=== PATIENT | male | born 1960 | race Caucasian/White ===

== ENCOUNTER 2018-10-04 13:20 | Inpatient (IN) | payer MEDICAID, OTHER ==
[~2018-10-04] VITALS: Ht 177.8 cm; Wt 72.9 kg
[2018-10-04] MEDS ORDERED: metoclopramide 5 mg/ml inj IV ONE (13:55)
[2018-10-04] MEDS ORDERED: diphenhydrAMINE 50 mg/ml inj IV ONE (13:55)
[2018-10-04] MEDS ORDERED: normal saline 1000ML IV soln IVB ONE (13:55)
[2018-10-04 14:12] LABS: BASOPHILS # (AUTO) 0.1 X10'3 (0-0.2); BASOPHILS % (AUTO) 0.7 % (0-1); EOSINOPHILS # (AUTO) 0.1 X10'3 (0-0.9); EOSINOPHILS % (AUTO) 1.1 % (0-6); HEMATOCRIT 47.5 % (42.0-52.0); HEMOGLOBIN 16.1 g/dl (14.0-17.9); LYMPHOCYTES # (AUTO) 2.6 X10'3 (1.1-4.8); LYMPHOCYTES % (AUTO) 21.6 % (21-51); MEAN CORPUSCULAR HEMOGLOBIN 30.5 PG (27.0-31.0); MEAN CORPUSCULAR HGB CONC 33.9 % (33.0-36.5); MEAN PLATELET VOLUME 8.5 FL (7.4-10.4); MONOCYTES # (AUTO) 0.8 X10'3 (0-0.9); MONOCYTES % (AUTO) 7.1 % (2-12); NEUTROPHILS # (AUTO) 8.3 X10'3 (1.8-7.7); NEUTROPHILS % (AUTO) 69.5 % (42-75); PLATELET COUNT 248 X10'3 (140-440); RED BLOOD COUNT 5.27 X10'6 (4.70-6.10); RED CELL DISTRIBUTION WIDTH 12.1 % (11.5-14.5); WHITE BLOOD COUNT 11.9 X10'3 (4.5-11.0)
[2018-10-04] MEDS ORDERED: iohexol 300mg/ml 100ml inj. ONE (14:19)
[2018-10-04 14:28] LABS: ALANINE AMINOTRANSFERASE 70 U/L (12-78); ALBUMIN 3.6 G/DL (3.4-5.0); ALBUMIN/GLOBULIN RATIO 0.8 (1.1-1.5); ALKALINE PHOSPHATASE 61 IU/L (46-116); ANION GAP 11 (8-16); ASPARTATE AMINO TRANSFERASE 29 U/L (10-37); BILIRUBIN,TOTAL 0.4 MG/DL (0.1-1.0); BLOOD UREA NITROGEN 19 MG/DL (7-18); BUN/CREATININE RATIO 17.3 (5.4-32.0); CALCIUM 9.6 MG/DL (8.5-10.1); CHLORIDE 94 MMOL/L (99-107); GLUCOSE 390 MG/DL (70-104); POTASSIUM 4.2 MMOL/L (3.5-5.1); SODIUM 131 MMOL/L (135-145); TOTAL PROTEIN 7.9 G/DL (6.4-8.2); eGFR 69 ML/MIN
[2018-10-04 14:36] LABS: MAGNESIUM 1.9 MG/DL (1.5-2.4)
[2018-10-04] MEDS ORDERED: aspirin 325mg tablet PO ONE (15:00)
[2018-10-04] MEDS ORDERED: acetaminophen 325mg tablet PO PRN ×2 (15:40)
[2018-10-04] MEDS ORDERED: mag hydrox/Alum hydrox/simeth 30ml oral suspension PO PRN (15:40)
[2018-10-04] MEDS ORDERED: HYDROcodone/acetaminophen 5mg/325mg tablet PO PRN (15:40)
[2018-10-04 16:22] LABS: HEMOGLOBIN A1C 10.2 % (4.5-6.2)
[2018-10-04] MEDS ORDERED: insulin regular, human 10 units/0.1 ml syringe IV ONE (17:30)
[2018-10-04] MEDS ORDERED: GLIM1TAB46 PO (17:32)
[2018-10-04] MEDS ORDERED: METF500T PO (17:32)
[2018-10-04] MEDS ORDERED: HYDR-4353 PO (17:33)
[2018-10-04] MEDS ORDERED: BLOOD PRESSURE MED (17:34)
[2018-10-04 18:25] LABS: CLARITY,URINE CLEAR (Clear); COLOR,URINE YELLOW (Yellow); GLUCOSE, URINE >=1000 mg/dl (Neg); KETONES,URINE NEGATIVE (Neg); LEUKOCYTE ESTERASE ,URINE NEGATIVE (Neg); NITRITES, URINE NEGATIVE (Neg); OCCULT BLOOD,URINE NEGATIVE (Neg); PH,URINE 5.5 (4.8-8.0); PROTEIN,URINE NEGATIVE (Neg); UROBILINOGEN,URINE 0.2 E.U/dL (0.2-1.0)
[2018-10-04 18:30] LABS: URINE AMPHETAMINE SCREEN NEGATIVE (Neg); URINE BARBITUATE SCREEN NEGATIVE (Neg); URINE BENZODIAZEPINES SCREEN NEGATIVE (Neg); URINE CANNABINOID SCREEN POSITIVE (Neg); URINE COCAINE SCREEN NEGATIVE (Neg); URINE METHADONE SCREEN NEGATIVE (Neg); URINE OPIATE SCREEN NEGATIVE (Neg); URINE PHENCYCLIDINE SCREEN NEGATIVE (Neg)
[2018-10-04] MEDS ORDERED: glucagon, human recombinant 1mg kit SUBCUT PRN (18:35)
[2018-10-04] MEDS ORDERED: MESSAGE TO PHARMACY PO ONE (18:35)
[2018-10-04] MEDS ORDERED: dextrose ORAL solution 15 GM/59 ML bottle PO PRN ×2 (18:35)
[2018-10-04] MEDS ORDERED: dextrose 50%-water 50ml dispensing syringe IV PRN ×2 (18:35)
[2018-10-04 18:39] LABS: UA COLLECTION TYPE CLN CATCH MIDSTREAM
[2018-10-04 18:40] LABS: BACTERIA,URINE NONE SEEN /HPF (Neg); MUCUS STRANDS NONE SEEN /LPF (Neg); RBC,URINE NONE SEEN /HPF (0-2); SQUAMOUS EPITHELIAL CELL,UR FEW /LPF (FEW); WBC,URINE NONE SEEN /HPF (0-4)
[2018-10-04 19:00] VITALS: BP 163/95
[2018-10-04 20:00] VITALS: BP_SYST 131; BP_SYST 139; BP_SYST 153; BP_DIAS 100; BP_DIAS 87; BP_DIAS 98
[2018-10-04] MEDS: insulin glargine (Lantus) pen - multi-dose SQ SCH (21:00)
[2018-10-04 22:00] VITALS: BP 131/87
[2018-10-05] VITALS (7 sets, daily range): BP systolic 128–164; BP diastolic 83–100
[2018-10-05] MEDS: HYDROcodone/acetaminophen 10/325mg tab PO PRN ×3 (05:28→20:47)
[2018-10-05 05:40] LABS: BASOPHILS % (AUTO) 0.3 % (0-1); EOSINOPHILS # (AUTO) 0.2 X10'3 (0-0.9); EOSINOPHILS % (AUTO) 1.7 % (0-6); HEMATOCRIT 45.3 % (42.0-52.0); HEMOGLOBIN 15.5 g/dl (14.0-17.9); LYMPHOCYTES # (AUTO) 2.7 X10'3 (1.1-4.8); LYMPHOCYTES % (AUTO) 23.3 % (21-51); MEAN CORPUSCULAR HEMOGLOBIN 30.9 PG (27.0-31.0); MEAN CORPUSCULAR HGB CONC 34.2 % (33.0-36.5); MEAN CORPUSCULAR VOLUME 90.3 FL (78-98); MEAN PLATELET VOLUME 8.4 FL (7.4-10.4); MONOCYTES % (AUTO) 8.8 % (2-12); NEUTROPHILS # (AUTO) 7.5 X10'3 (1.8-7.7); NEUTROPHILS % (AUTO) 65.9 % (42-75); PLATELET COUNT 220 X10'3 (140-440); RED BLOOD COUNT 5.02 X10'6 (4.70-6.10); WHITE BLOOD COUNT 11.4 X10'3 (4.5-11.0)
[2018-10-05 06:01] LABS: ANION GAP 7 (8-16); BLOOD UREA NITROGEN 13 MG/DL (7-18); BUN/CREATININE RATIO 13.4 (5.4-32.0); CALCIUM 9.3 MG/DL (8.5-10.1); CHLORIDE 99 MMOL/L (99-107); CHOLESTEROL 146 MG/DL (0-200); CREATININE 0.97 MG/DL (0.60-1.10); GLUCOSE 305 MG/DL (70-104); HDL CHOLESTEROL 29 MG/DL (35-60); LDL CHOLESTEROL 92 MG/DL (50-100); MAGNESIUM 2.2 MG/DL (1.5-2.4); POTASSIUM 4.2 MMOL/L (3.5-5.1); SODIUM 133 MMOL/L (135-145); TOTAL CARBON DIOXIDE 26.6 MMOL/L (24-32); TRIGLYCERIDES 167 MG/DL (20-135); eGFR 80 ML/MIN
[2018-10-05] MEDS ORDERED: atorvastatin 10mg tablet PO SCH (08:00)
[2018-10-05] MEDS: aspirin 81mg tablet.DR PO SCH (08:21)
[2018-10-05] MEDS: insulin Lispro (HumaLOG) vial - multi-dose SQ SCH ×2 (08:29→18:53)
[2018-10-05] MEDS ORDERED: iohexol 350MG/ML 100ml bottle IV ONE (10:11)
[2018-10-05] MEDS: enoxaparin 60mg/0.6ml syringe SUBCUT SCH ×2 (11:20→20:47)
[2018-10-05] MEDS ORDERED: GLYB2.5T4 PO (11:57)
[2018-10-05] MEDS ORDERED: METO1TAB25 PO (11:57)
[2018-10-05] MEDS ORDERED: METO25TA6 PO (11:59)
[2018-10-05] MEDS ORDERED: clonazePAM 0.5mg tablet PO PRN (15:50)
[2018-10-05] MEDS: insulin glargine (Lantus) pen - multi-dose SQ SCH (20:45)
[2018-10-06] VITALS (7 sets, daily range): BP systolic 115–192; BP diastolic 76–120
[2018-10-06] MEDS: HYDROcodone/acetaminophen 10/325mg tab PO PRN (05:07)
[2018-10-06] MEDS: magnesium hydroxide 30ml (MOM) UD suspension PO PRN ×2 (05:08→19:27)
[2018-10-06] MEDS ORDERED: bisacodyl 10mg suppository rectal RC PRN (05:45)
[2018-10-06] MEDS: ondansetron/PF 4mg/2ml inj IV PRN ×2 (07:10→18:49)
[2018-10-06] MEDS: insulin Lispro (HumaLOG) vial - multi-dose SQ SCH ×3 (07:36→18:45)
[2018-10-06 08:26] LABS: BASOPHILS % (AUTO) 0.2 % (0-1); EOSINOPHILS # (AUTO) 0.2 X10'3 (0-0.9); EOSINOPHILS % (AUTO) 1.5 % (0-6); HEMATOCRIT 49.6 % (42.0-52.0); HEMOGLOBIN 16.7 g/dl (14.0-17.9); LYMPHOCYTES # (AUTO) 1.4 X10'3 (1.1-4.8); LYMPHOCYTES % (AUTO) 13.5 % (21-51); MEAN CORPUSCULAR HEMOGLOBIN 30.3 PG (27.0-31.0); MEAN CORPUSCULAR HGB CONC 33.6 % (33.0-36.5); MEAN CORPUSCULAR VOLUME 90.3 FL (78-98); MEAN PLATELET VOLUME 8.5 FL (7.4-10.4); MONOCYTES # (AUTO) 0.7 X10'3 (0-0.9); MONOCYTES % (AUTO) 6.5 % (2-12); NEUTROPHILS # (AUTO) 8.3 X10'3 (1.8-7.7); NEUTROPHILS % (AUTO) 78.3 % (42-75); PLATELET COUNT 244 X10'3 (140-440); RED BLOOD COUNT 5.49 X10'6 (4.70-6.10); RED CELL DISTRIBUTION WIDTH 12.1 % (11.5-14.5); WHITE BLOOD COUNT 10.6 X10'3 (4.5-11.0)
[2018-10-06 08:42] LABS: ALBUMIN 3.4 G/DL (3.4-5.0); ANION GAP 13 (8-16); BLOOD UREA NITROGEN 16 MG/DL (7-18); BUN/CREATININE RATIO 13.2 (5.4-32.0); CHLORIDE 94 MMOL/L (99-107); CREATININE 1.21 MG/DL (0.60-1.10); GLUCOSE 319 MG/DL (70-104); MAGNESIUM 2.1 MG/DL (1.5-2.4); POTASSIUM 4.2 MMOL/L (3.5-5.1); SODIUM 132 MMOL/L (135-145); TOTAL CARBON DIOXIDE 25.2 MMOL/L (24-32); eGFR 62 ML/MIN
[2018-10-06] MEDS: morphine 4 MG/ML inj SYRINge IV PRN ×2 (09:02→14:06)
[2018-10-06] MEDS: aspirin 81mg tablet.DR PO SCH (09:03)
[2018-10-06] MEDS: atorvastatin 20mg tablet PO SCH (09:03)
[2018-10-06 09:08] LABS: TROPONIN I 0.22 NG/ML (0.0-0.05)
[2018-10-06] MEDS: enoxaparin 60mg/0.6ml syringe SUBCUT SCH ×2 (09:27→19:56)
[2018-10-06] MEDS: metoprolol tartrate 25mg tablet PO SCH (19:57)
[2018-10-06] MEDS: insulin glargine (Lantus) pen - multi-dose SQ SCH (21:00)
[2018-10-07] VITALS (7 sets, daily range): BP systolic 129–191; BP diastolic 75–119
[2018-10-07 01:15] LABS: BASOPHILS % (AUTO) 0.2 % (0-1); EOSINOPHILS % (AUTO) 0.2 % (0-6); HEMATOCRIT 49.3 % (42.0-52.0); HEMOGLOBIN 16.5 g/dl (14.0-17.9); LYMPHOCYTES # (AUTO) 1.8 X10'3 (1.1-4.8); LYMPHOCYTES % (AUTO) 12.3 % (21-51); MEAN CORPUSCULAR HEMOGLOBIN 30.2 PG (27.0-31.0); MEAN CORPUSCULAR HGB CONC 33.5 % (33.0-36.5); MEAN CORPUSCULAR VOLUME 90.1 FL (78-98); MEAN PLATELET VOLUME 8.8 FL (7.4-10.4); MONOCYTES % (AUTO) 6.9 % (2-12); NEUTROPHILS # (AUTO) 12.1 X10'3 (1.8-7.7); NEUTROPHILS % (AUTO) 80.4 % (42-75); PLATELET COUNT 279 X10'3 (140-440); RED BLOOD COUNT 5.47 X10'6 (4.70-6.10); RED CELL DISTRIBUTION WIDTH 11.6 % (11.5-14.5); WHITE BLOOD COUNT 14.9 X10'3 (4.5-11.0)
[2018-10-07 01:31] LABS: ALBUMIN 3.3 G/DL (3.4-5.0); ANION GAP 11 (8-16); BLOOD UREA NITROGEN 17 MG/DL (7-18); BUN/CREATININE RATIO 10.4 (5.4-32.0); CHLORIDE 94 MMOL/L (99-107); CREATININE 1.64 MG/DL (0.60-1.10); GLUCOSE 140 MG/DL (70-104); MAGNESIUM 2.4 MG/DL (1.5-2.4); POTASSIUM 3.8 MMOL/L (3.5-5.1); SODIUM 132 MMOL/L (135-145); TOTAL CARBON DIOXIDE 27.5 MMOL/L (24-32); TROPONIN I 0.15 NG/ML (0.0-0.05); eGFR 44 ML/MIN
[2018-10-07] MEDS: ondansetron/PF 4mg/2ml inj IV PRN ×2 (02:08→17:06)
[2018-10-07] MEDS: enoxaparin 60mg/0.6ml syringe SUBCUT SCH ×2 (08:00→20:00)
[2018-10-07] MEDS ORDERED: non-formulary drug (Glyburide 1 TAB) PO SCH (08:00)
[2018-10-07] MEDS: aspirin 81mg tablet.DR PO SCH (09:32)
[2018-10-07] MEDS: atorvastatin 20mg tablet PO SCH (09:32)
[2018-10-07] MEDS: metoprolol tartrate 25mg tablet PO SCH ×2 (09:32→19:51)
[2018-10-07] MEDS: normal saline 1000ml 1,000 ML IV SCH ×2 (09:33→19:50)
[2018-10-07] MEDS ORDERED: metoprolol tartrate 25mg tablet PO ONE (10:00)
[2018-10-07] MEDS ORDERED: iohexol 300mg/ml 100ml inj. ONE (10:34)
[2018-10-07] MEDS ORDERED: LIDOcaine 1% (10mg/ml)w/preservative injection 20ml MDV ONE (11:19)
[2018-10-07] MEDS ORDERED: iohexol 350MG/ML 100ml bottle IV ONE (11:20)
[2018-10-07] MEDS ORDERED: fentaNYL/PF 50MCG/1 ML 2ML syringe ONE (11:42)
[2018-10-07] MEDS ORDERED: midazolam 2 mg/2 ml injection ONE (11:42)
[2018-10-07] MEDS: HYDROcodone/acetaminophen 10/325mg tab PO PRN ×2 (13:50→21:57)
[2018-10-07] MEDS: insulin Lispro (HumaLOG) vial - multi-dose SQ SCH ×2 (14:00→21:08)
[2018-10-07] MEDS: morphine 4 MG/ML inj SYRINge IV PRN (19:58)
[2018-10-07] MEDS: insulin glargine (Lantus) pen - multi-dose SQ SCH (21:05)
[2018-10-08] MEDS: HYDROcodone/acetaminophen 10/325mg tab PO PRN ×2 (04:26→21:23)
[2018-10-08] MEDS: normal saline 1000ml 1,000 ML IV SCH ×2 (05:31→15:04)
[2018-10-08 06:00] VITALS: BP 159/101
[2018-10-08 06:51] LABS: BASOPHILS % (AUTO) 0.2 % (0-1); EOSINOPHILS # (AUTO) 0.1 X10'3 (0-0.9); EOSINOPHILS % (AUTO) 0.6 % (0-6); HEMATOCRIT 44.1 % (42.0-52.0); HEMOGLOBIN 14.9 g/dl (14.0-17.9); LYMPHOCYTES # (AUTO) 1.6 X10'3 (1.1-4.8); LYMPHOCYTES % (AUTO) 9.7 % (21-51); MEAN CORPUSCULAR HEMOGLOBIN 30.5 PG (27.0-31.0); MEAN CORPUSCULAR HGB CONC 33.7 % (33.0-36.5); MEAN CORPUSCULAR VOLUME 90.4 FL (78-98); MEAN PLATELET VOLUME 8.2 FL (7.4-10.4); MONOCYTES # (AUTO) 1.2 X10'3 (0-0.9); MONOCYTES % (AUTO) 7.2 % (2-12); NEUTROPHILS # (AUTO) 13.4 X10'3 (1.8-7.7); NEUTROPHILS % (AUTO) 82.3 % (42-75); PLATELET COUNT 231 X10'3 (140-440); RED BLOOD COUNT 4.88 X10'6 (4.70-6.10); RED CELL DISTRIBUTION WIDTH 12.5 % (11.5-14.5); WHITE BLOOD COUNT 16.2 X10'3 (4.5-11.0)
[2018-10-08 06:59] LABS: ALBUMIN 2.7 G/DL (3.4-5.0); ANION GAP 8 (8-16); BLOOD UREA NITROGEN 16 MG/DL (7-18); BUN/CREATININE RATIO 9.4 (5.4-32.0); CALCIUM 8.1 MG/DL (8.5-10.1); CHLORIDE 97 MMOL/L (99-107); CREATININE 1.71 MG/DL (0.60-1.10); GLUCOSE 193 MG/DL (70-104); MAGNESIUM 2.2 MG/DL (1.5-2.4); POTASSIUM 4.3 MMOL/L (3.5-5.1); SODIUM 132 MMOL/L (135-145); TOTAL CARBON DIOXIDE 27.3 MMOL/L (24-32); eGFR 42 ML/MIN
[2018-10-08 08:00] VITALS: BP_SYST 136; BP_SYST 147; BP_SYST 166; BP_SYST 172; BP_SYST 183; BP_DIAS 103; BP_DIAS 106; BP_DIAS 74; BP_DIAS 76; BP_DIAS 81; BP_DIAS 96
[2018-10-08] MEDS ORDERED: LORazepam 1 MG tablet PO PRN (08:00)
[2018-10-08] MEDS: aspirin 81mg tablet.DR PO SCH (09:13)
[2018-10-08] MEDS: atorvastatin 20mg tablet PO SCH (09:13)
[2018-10-08] MEDS: metoprolol tartrate 25mg tablet PO SCH ×2 (09:15→19:35)
[2018-10-08] MEDS: enoxaparin 60mg/0.6ml syringe SUBCUT SCH ×2 (09:16→19:34)
[2018-10-08] MEDS: morphine 4 MG/ML inj SYRINge IV PRN ×3 (09:23→19:35)
[2018-10-08] MEDS: insulin Lispro (HumaLOG) vial - multi-dose SQ SCH ×3 (09:49→18:50)
[2018-10-08 10:00] VITALS: BP 147/96
[2018-10-08 18:00] VITALS: BP 162/91
[2018-10-08] MEDS: ondansetron/PF 4mg/2ml inj IV PRN (18:41)
[2018-10-08 20:59] VITALS: BP_SYST 144; BP_SYST 153; BP_SYST 158; BP_DIAS 83; BP_DIAS 92; BP_DIAS 93
[2018-10-08] MEDS: insulin glargine (Lantus) pen - multi-dose SQ SCH (21:20)
[2018-10-08 22:00] VITALS: BP 153/92
[2018-10-09] MEDS: normal saline 1000ml 1,000 ML IV SCH ×3 (01:59→21:00)
[2018-10-09] MEDS: HYDROcodone/acetaminophen 10/325mg tab PO PRN ×3 (02:03→16:17)
[2018-10-09] MEDS: morphine 4 MG/ML inj SYRINge IV PRN ×3 (05:31→22:09)
[2018-10-09 06:00] VITALS: BP 148/99
[2018-10-09 06:04] LABS: BASOPHILS % (AUTO) 0.3 % (0-1); EOSINOPHILS # (AUTO) 0.2 X10'3 (0-0.9); EOSINOPHILS % (AUTO) 1.2 % (0-6); HEMATOCRIT 39.4 % (42.0-52.0); HEMOGLOBIN 13.4 g/dl (14.0-17.9); LYMPHOCYTES # (AUTO) 2.3 X10'3 (1.1-4.8); LYMPHOCYTES % (AUTO) 15.4 % (21-51); MEAN CORPUSCULAR HEMOGLOBIN 30.8 PG (27.0-31.0); MEAN CORPUSCULAR VOLUME 90.7 FL (78-98); MEAN PLATELET VOLUME 8.3 FL (7.4-10.4); MONOCYTES # (AUTO) 1.4 X10'3 (0-0.9); MONOCYTES % (AUTO) 9.7 % (2-12); NEUTROPHILS # (AUTO) 10.7 X10'3 (1.8-7.7); NEUTROPHILS % (AUTO) 73.4 % (42-75); PLATELET COUNT 246 X10'3 (140-440); RED BLOOD COUNT 4.35 X10'6 (4.70-6.10); RED CELL DISTRIBUTION WIDTH 12.2 % (11.5-14.5); WHITE BLOOD COUNT 14.6 X10'3 (4.5-11.0)
[2018-10-09 06:09] LABS: ALBUMIN 2.4 G/DL (3.4-5.0); ANION GAP 6 (8-16); BLOOD UREA NITROGEN 15 MG/DL (7-18); BUN/CREATININE RATIO 8.8 (5.4-32.0); CALCIUM 7.8 MG/DL (8.5-10.1); CHLORIDE 101 MMOL/L (99-107); GLUCOSE 157 MG/DL (70-104); MAGNESIUM 2.1 MG/DL (1.5-2.4); POTASSIUM 3.9 MMOL/L (3.5-5.1); SODIUM 135 MMOL/L (135-145); TOTAL CARBON DIOXIDE 27.8 MMOL/L (24-32); eGFR 42 ML/MIN
[2018-10-09] MEDS: aspirin 81mg tablet.DR PO SCH (07:35)
[2018-10-09] MEDS: atorvastatin 20mg tablet PO SCH (07:35)
[2018-10-09] MEDS: metoprolol tartrate 25mg tablet PO SCH ×2 (07:36→20:11)
[2018-10-09] MEDS: enoxaparin 60mg/0.6ml syringe SUBCUT SCH (07:37)
[2018-10-09] MEDS: insulin Lispro (HumaLOG) vial - multi-dose SQ SCH ×2 (08:45→13:17)
[2018-10-09] MEDS ORDERED: dextrose 50%-water 50ml dispensing syringe IV PRN (10:00)
[2018-10-09] MEDS ORDERED: MESSAGE TO NURSING PO ONE ×5 (10:00)
[2018-10-09 11:00] VITALS: BP 157/96
[2018-10-09 12:36] LABS: ABG BASE EXCESS 0.9 mmol/L (-2.0-3.0); ABG HCO3 25.4 mmol/L (22.0-26.0); ABG OXYGEN SATURATION 95.5 % (95-98); ALLEN'S TEST Positive; FCOHb 0.2 % (0.5-1.5); FO2Hb 95.3 % (94-100); TOTAL HEMOGLOBIN 14.8 G/dl (14.0-18.0)
[2018-10-09 15:00] VITALS: BP 186/116
[2018-10-09 19:00] VITALS: BP 171/94
[2018-10-09] MEDS ORDERED: mupirocin 2% nasal ointment 1gm UD NS SCH (20:00)
[2018-10-09] MEDS ORDERED: metoprolol tartrate 25mg tablet PO SCH (20:00)
[2018-10-09] MEDS: insulin glargine (Lantus) pen - multi-dose SQ SCH (20:47)
[2018-10-09 23:00] VITALS: BP 171/97
[2018-10-10] VITALS (18 sets, daily range): BP systolic 108–183; BP diastolic 50–99
[2018-10-10] MEDS: morphine 4 MG/ML inj SYRINge IV PRN ×10 (02:11→23:06)
[2018-10-10] MEDS ORDERED: cefazolin/dext.iso 2gm/100ml 100 ML IV ONE (05:30)
[2018-10-10] MEDS ORDERED: vancomycin/NS 1 GM ADD-VANTAGE 250 ML IV ONE (05:30)
[2018-10-10] MEDS: ringers solution, lacted 1,000 ML IV SCH (05:44)
[2018-10-10] MEDS ORDERED: LORazepam 2 mg/ml vial IV ONE (06:00)
[2018-10-10] MEDS ORDERED: famotidine 20mg tablet PO ONE (06:00)
[2018-10-10] MEDS ORDERED: heparin 10,000 units/1 ML INJ IR ONE (06:05)
[2018-10-10] MEDS ORDERED: papaverine 30 mg/ml 2ml inj. IA ONE (06:06)
[2018-10-10 06:38] LABS: BASOPHILS # (AUTO) 0.1 X10'3 (0-0.2); BASOPHILS % (AUTO) 0.4 % (0-1); EOSINOPHILS # (AUTO) 0.1 X10'3 (0-0.9); EOSINOPHILS % (AUTO) 0.8 % (0-6); HEMATOCRIT 35.6 % (42.0-52.0); HEMOGLOBIN 12.1 g/dl (14.0-17.9); LYMPHOCYTES # (AUTO) 2.2 X10'3 (1.1-4.8); LYMPHOCYTES % (AUTO) 17.1 % (21-51); MEAN CORPUSCULAR HEMOGLOBIN 30.7 PG (27.0-31.0); MEAN CORPUSCULAR VOLUME 90.4 FL (78-98); MEAN PLATELET VOLUME 8.3 FL (7.4-10.4); MONOCYTES # (AUTO) 1.2 X10'3 (0-0.9); NEUTROPHILS # (AUTO) 9.5 X10'3 (1.8-7.7); NEUTROPHILS % (AUTO) 72.7 % (42-75); PLATELET COUNT 278 X10'3 (140-440); RED BLOOD COUNT 3.93 X10'6 (4.70-6.10); RED CELL DISTRIBUTION WIDTH 12.2 % (11.5-14.5); WHITE BLOOD COUNT 13.1 X10'3 (4.5-11.0)
[2018-10-10] MEDS ORDERED: calcium chloride 100 MG/1 ML inj IV ONE (06:40)
[2018-10-10] MEDS ORDERED: magnesium sulf 1 GM/2 ML ONE (06:40)
[2018-10-10] MEDS ORDERED: methylPREDNISolone sod succ 1000mg vial ONE (06:40)
[2018-10-10] MEDS ORDERED: INSULIN R 100 UNIT in NS 100ML (1 UNIT/1 ML) BAG IV ONE (06:40)
[2018-10-10] MEDS ORDERED: sevoflurane 250ml liquid IH ONE (06:40)
[2018-10-10] MEDS ORDERED: aminocaproic acid 250 MG/1 ML inj. ONE (06:40)
[2018-10-10] MEDS ORDERED: protamine sulf. 10mg/ml inj. IV ONE (06:40)
[2018-10-10] MEDS ORDERED: nitroGLYCERIN in D5W 50mg/250ml (Tridil) infusion IV ONE (06:40)
[2018-10-10] MEDS ORDERED: LIDOcaine 2% (20mg/ml) 5ml vial ONE (06:40)
[2018-10-10] MEDS ORDERED: albumin (human) 25% 100 ML IV solution IV ONE (06:40)
[2018-10-10] MEDS ORDERED: LIDOcaine 2% (20 mg/ml) 5ml cardiac syringe ONE (06:40)
[2018-10-10] MEDS ORDERED: niCARDipine in NS 40mg/200ml (0.2mg/ml) IVPB IV ONE (06:40)
[2018-10-10] MEDS ORDERED: sodium bicarbonate (8.4%) 1 mEq/ml syringe ONE (06:40)
[2018-10-10] MEDS ORDERED: potassium Cl 2 mEq/ml inj IV ONE (06:40)
[2018-10-10] MEDS ORDERED: heparin 10,000 units/1 ML INJ ONE (06:40)
[2018-10-10] MEDS ORDERED: phenylephrine 10mg/ml inj. ONE (06:40)
[2018-10-10] MEDS ORDERED: heparin 1,000 units/ml 10ml inj ONE (06:40)
[2018-10-10] MEDS: insulin Lispro (HumaLOG) vial - multi-dose SQ SCH ×4 (06:42→18:00)
[2018-10-10 06:49] LABS: ALBUMIN 2.3 G/DL (3.4-5.0); ANION GAP 8 (8-16); CHLORIDE 100 MMOL/L (99-107); CREATININE 1.88 MG/DL (0.60-1.10); GLUCOSE 174 MG/DL (70-104); POTASSIUM 3.7 MMOL/L (3.5-5.1); SODIUM 135 MMOL/L (135-145); TOTAL CARBON DIOXIDE 26.6 MMOL/L (24-32); eGFR 37 ML/MIN
[2018-10-10 06:50] LABS: INR 0.9 INR; PARTIAL THROMBOPLASTIN TIME 33 SECONDS (22-32); PROTHROMBIN TIME 9.4 SECONDS (9.0-12.0)
[2018-10-10] MEDS ORDERED: SUFENTANIL CITRATE 50 MCG/ML 2ml ampule IV ONE (06:52)
[2018-10-10] MEDS ORDERED: MIDAZolam 1mg/ml 10ml vial ONE (06:52)
[2018-10-10] MEDS ORDERED: propofol inj 20 ML IV ONE (06:54)
[2018-10-10 07:02] LABS: BLOOD UREA NITROGEN 17 MG/DL (7-18)
[2018-10-10 07:25] LABS: ABG BASE EXCESS 2.5 mmol/L (-2.0-3.0); ABG HCO3 26.2 mmol/L (22.0-26.0); ABG OXYGEN SATURATION 99.1 % (95-98); ABG PCO2 37.4 mmHg (35.0-45.0); ABG PH 7.464 (7.350-7.450); ABG PO2 430.2 mmHg (60.0-100.0); CL (ABG) 105 mmol/L (99-107); FCOHb 0.3 % (0.5-1.5); FMetHb 0.6 % (0.3-1.12); FO2Hb 98.2 % (94-100); GLUCOSE (ABG) 138 mg/dl (70-105); IONIZED CA (ABG) 1.03 mmol/L (1.03-1.32); K (ABG) 3.4 mmol/L (3.3-5.1); NA (ABG) 133 mmol/L (135-145); TOTAL HEMOGLOBIN 12.1 G/dl (14.0-18.0)
[2018-10-10] MEDS ORDERED: pancuronium br 1mg/ml inj IV ONE (08:09)
[2018-10-10 08:40] LABS: ACT @ 1.70 U 357 SEC (193-297); ACT @ 2.84 U 491 SEC (260-420); BASELINE ACT 169 SEC (101-148); PATIENT WEIGHT 75.0k KG
[2018-10-10 09:10] LABS: ABG BASE EXCESS 3.3 mmol/L (-2.0-3.0); ABG HCO3 28.1 mmol/L (22.0-26.0); ABG OXYGEN SATURATION 99.1 % (95-98); ABG PCO2 44.2 mmHg (35.0-45.0); ABG PH 7.421 (7.350-7.450); ABG PO2 363.3 mmHg (60.0-100.0); CL (ABG) 103 mmol/L (99-107); FCOHb 0.3 % (0.5-1.5); FMetHb 0.3 % (0.3-1.12); FO2Hb 98.5 % (94-100); GLUCOSE (ABG) 102 mg/dl (70-105); IONIZED CA (ABG) 0.89 mmol/L (1.03-1.32); K (ABG) 4.2 mmol/L (3.3-5.1); NA (ABG) 131 mmol/L (135-145); TOTAL HEMOGLOBIN 8.1 G/dl (14.0-18.0)
[2018-10-10 09:36] LABS: ABG BASE EXCESS VENOUS 2.7 mmol/L; ABG HCO3 VENOUS 27.2 mmol/L; ABG PCO2 VENOUS 41.3 mmHg; ABG PO2 VENOUS 45.2 mmHg; CL (ABG) 103 mmol/L (99-107); FCOHb VENOUS 0.2 %; FHHb VENOUS 16.2 %; FMetHb VENOUS 0.1 %; FO2Hb VENOUS 83.5 %; GLUCOSE (ABG) 119 mg/dl (70-105); IONIZED CA (ABG) 0.94 mmol/L (1.03-1.32); K (ABG) 4.2 mmol/L (3.3-5.1); NA (ABG) 132 mmol/L (135-145); TOTAL HEMOGLOBIN 8.6 G/dl (14.0-18.0)
[2018-10-10 10:10] LABS: ABG BASE EXCESS 0.4 mmol/L (-2.0-3.0); ABG HCO3 23.4 mmol/L (22.0-26.0); ABG PCO2 31.4 mmHg (35.0-45.0); ABG PH 7.491 (7.350-7.450); ABG PO2 390.4 mmHg (60.0-100.0); CL (ABG) 104 mmol/L (99-107); FCOHb 0.3 % (0.5-1.5); FMetHb 0.5 % (0.3-1.12); FO2Hb 98.2 % (94-100); GLUCOSE (ABG) 146 mg/dl (70-105); IONIZED CA (ABG) 0.95 mmol/L (1.03-1.32); K (ABG) 4.3 mmol/L (3.3-5.1); NA (ABG) 131 mmol/L (135-145); TOTAL HEMOGLOBIN 8.9 G/dl (14.0-18.0)
[2018-10-10 10:40] LABS: ABG BASE EXCESS 4.7 mmol/L (-2.0-3.0); ABG HCO3 28.9 mmol/L (22.0-26.0); ABG OXYGEN SATURATION 98.8 % (95-98); ABG PCO2 41.2 mmHg (35.0-45.0); ABG PH 7.464 (7.350-7.450); ABG PO2 535.7 mmHg (60.0-100.0); CL (ABG) 103 mmol/L (99-107); FCOHb 0.3 % (0.5-1.5); FMetHb 0.8 % (0.3-1.12); FO2Hb 97.7 % (94-100); GLUCOSE (ABG) 155 mg/dl (70-105); IONIZED CA (ABG) 1.08 mmol/L (1.03-1.32); K (ABG) 4.2 mmol/L (3.3-5.1); NA (ABG) 132 mmol/L (135-145); TOTAL HEMOGLOBIN 8.2 G/dl (14.0-18.0)
[2018-10-10 11:15] LABS: ABG BASE EXCESS VENOUS 2.4 mmol/L; ABG HCO3 VENOUS 26.8 mmol/L; ABG PCO2 VENOUS 40.6 mmHg; ABG PO2 VENOUS 32.7 mmHg; CL (ABG) 103 mmol/L (99-107); FCOHb VENOUS 0.2 %; FMetHb VENOUS 0.9 %; FO2Hb VENOUS 67.9 %; GLUCOSE (ABG) 144 mg/dl (70-105); IONIZED CA (ABG) 1.09 mmol/L (1.03-1.32); NA (ABG) 131 mmol/L (135-145); TOTAL HEMOGLOBIN 8.3 G/dl (14.0-18.0)
[2018-10-10 11:36] LABS: ACTIVATED CLOTTING TIME 145 SEC (101-148)
[2018-10-10] MEDS ORDERED: insulin regular, human inj. 100 UNITS in normal saline 100ml IV soln 100 ML IV SCH ×2 (11:50)
[2018-10-10] MEDS ORDERED: dextrose 50%-water 50ml dispensing syringe IV PRN (11:50)
[2018-10-10] MEDS ORDERED: sodium phosphate inj. 15 MMOL in dextrose 5%-water 150 ML IV PRN (11:50)
[2018-10-10] MEDS ORDERED: potassium Cl 20mEq/100mL bag 100 ML IV PRN ×2 (11:50)
[2018-10-10] MEDS ORDERED: ondansetron/PF 4mg/2ml inj IV PRN (11:50)
[2018-10-10] MEDS ORDERED: DOPamine 400mg/D5W 250ml 250 ML IV PRN (11:50)
[2018-10-10] MEDS ORDERED: acetaminophen 325mg tablet PO PRN (11:50)
[2018-10-10] MEDS ORDERED: nitroGLYCERIN-Tridil 50MG/D5W 250 ML IV PRN (11:50)
[2018-10-10] MEDS ORDERED: sodium phosphate inj. 30 MMOL in dextrose 5%-water 250 ML IV PRN (11:50)
[2018-10-10] MEDS ORDERED: HYDROcodone/acetaminophen 10/325mg tab PO PRN (11:50)
[2018-10-10] MEDS ORDERED: magnesium hydroxide 30ml (MOM) UD suspension PO PRN (11:50)
[2018-10-10] MEDS ORDERED: pantoprazole 40 MG vial IV ONE (11:50)
[2018-10-10] MEDS ORDERED: metoclopramide 5 mg/ml inj IV PRN (11:50)
[2018-10-10] MEDS ORDERED: albumin (Human) 5% 250ml 250 ML IV PRN (11:50)
[2018-10-10] MEDS ORDERED: magnesium 4gm in 100ml NS 100 ML IV PRN (11:50)
[2018-10-10] MEDS ORDERED: Neutra Phos packet PO PRN (11:50)
[2018-10-10] MEDS ORDERED: normal saline 250ml IV soln 250 ML IV PRN (11:50)
[2018-10-10 12:16] LABS: ABG BASE EXCESS 2.2 mmol/L (-2.0-3.0); ABG HCO3 24.5 mmol/L (22.0-26.0); ABG OXYGEN SATURATION 95.9 % (95-98); ABG PCO2 (T) 29.1 mmHg (35.0-48.0); FCOHb 0.3 % (0.5-1.5); FMetHb 0.1 % (0.3-1.12); FO2Hb 95.5 % (94-100); MINUTE VOLUME 13 L/min; PATIENT TEMPERATURE 36.1; PEEP 5 cm H2O; RESPIRATORY RATE 10 b/min; RESPIRATORY RATE (OBSERVED) 23 b/min; TIDAL VOLUME 650 mL; TOTAL HEMOGLOBIN 10.5 G/dl (14.0-18.0)
[2018-10-10 12:17] LABS: BASOPHILS % (AUTO) 0.1 % (0-1); EOSINOPHILS # (AUTO) 0.1 X10'3 (0-0.9); EOSINOPHILS % (AUTO) 1.1 % (0-6); HEMOGLOBIN 9.8 g/dl (14.0-17.9); LYMPHOCYTES # (AUTO) 0.6 X10'3 (1.1-4.8); LYMPHOCYTES % (AUTO) 4.4 % (21-51); MEAN CORPUSCULAR HEMOGLOBIN 30.4 PG (27.0-31.0); MEAN CORPUSCULAR HGB CONC 33.9 % (33.0-36.5); MEAN CORPUSCULAR VOLUME 89.8 FL (78-98); MEAN PLATELET VOLUME 7.5 FL (7.4-10.4); MONOCYTES # (AUTO) 0.5 X10'3 (0-0.9); MONOCYTES % (AUTO) 3.9 % (2-12); NEUTROPHILS # (AUTO) 11.3 X10'3 (1.8-7.7); NEUTROPHILS % (AUTO) 90.5 % (42-75); PLATELET COUNT 170 X10'3 (140-440); RED BLOOD COUNT 3.23 X10'6 (4.70-6.10); RED CELL DISTRIBUTION WIDTH 12.2 % (11.5-14.5); WHITE BLOOD COUNT 12.5 X10'3 (4.5-11.0)
[2018-10-10 12:33] LABS: ALANINE AMINOTRANSFERASE 44 U/L (12-78); ALBUMIN/GLOBULIN RATIO 0.7 (1.1-1.5); ALKALINE PHOSPHATASE 46 IU/L (46-116); ANION GAP 8 (8-16); ASPARTATE AMINO TRANSFERASE 59 U/L (10-37); BILIRUBIN,TOTAL 0.7 MG/DL (0.1-1.0); BLOOD UREA NITROGEN 14 MG/DL (7-18); BUN/CREATININE RATIO 7.8 (5.4-32.0); CALCIUM 7.7 MG/DL (8.5-10.1); CHLORIDE 105 MMOL/L (99-107); GLUCOSE 111 MG/DL (70-104); MAGNESIUM 3.5 MG/DL (1.5-2.4); PHOSPHORUS 1.3 MG/DL (2.3-4.5); POTASSIUM 3.7 MMOL/L (3.5-5.1); SODIUM 139 MMOL/L (135-145); TOTAL CARBON DIOXIDE 25.9 MMOL/L (24-32); TOTAL PROTEIN 4.8 G/DL (6.4-8.2); eGFR 39 ML/MIN
[2018-10-10 12:41] LABS: INR 1.1 INR; PARTIAL THROMBOPLASTIN TIME 47 SECONDS (22-32); PROTHROMBIN TIME 10.7 SECONDS (9.0-12.0)
[2018-10-10] MEDS: potassium Cl 20mEq/100mL bag 100 ML IV PRN ×2 (13:20→14:37)
[2018-10-10] MEDS: sodium chloride 0.45% 1,000 ML IV SCH (13:20)
[2018-10-10] MEDS: niCARDipine-NS 40mg/200ml IVPB 200 ML IV PRN ×2 (13:58→19:35)
[2018-10-10] MEDS: ceFAZolin 1GM/D5W- ADD-VANTAGE 50 ML IV SCH ×2 (15:55→23:05)
[2018-10-10 16:41] LABS: ABG BASE EXCESS -2.3 mmol/L (-2.0-3.0); ABG HCO3 20.3 mmol/L (22.0-26.0); ABG OXYGEN SATURATION 97.7 % (95-98); ABG PCO2 (T) 28.2 mmHg (35.0-48.0); ABG PH (T) 7.475 (7.350-7.450); ABG PO2 (T) 103.4 mmHg (83-108); FCOHb 0.3 % (0.5-1.5); FO2Hb 97.4 % (94-100); MINUTE VOLUME 10 L/min; PEEP 5 cm H2O; RESPIRATORY RATE (OBSERVED) 21 b/min; TOTAL HEMOGLOBIN 11.2 G/dl (14.0-18.0)
[2018-10-10] MEDS ORDERED: potassium phosphate inj 30 MMOL in dextrose 5%-water 250 ML IV ONE (16:50)
[2018-10-10] MEDS: insulin regular, human inj. 100 UNITS in normal saline 100ml IV soln 100 ML IV SCH ×2 (17:24)
[2018-10-10 18:43] LABS: BASOPHILS % (AUTO) 0 % (0-1); EOSINOPHILS # (AUTO) 0.2 X10'3 (0-0.9); HEMATOCRIT 32.3 % (42.0-52.0); HEMOGLOBIN 10.7 g/dl (14.0-17.9); LYMPHOCYTES # (AUTO) 0.5 X10'3 (1.1-4.8); LYMPHOCYTES % (AUTO) 2.4 % (21-51); MEAN CORPUSCULAR HEMOGLOBIN 30.3 PG (27.0-31.0); MEAN CORPUSCULAR HGB CONC 33.2 % (33.0-36.5); MEAN CORPUSCULAR VOLUME 91.1 FL (78-98); MEAN PLATELET VOLUME 8.4 FL (7.4-10.4); MONOCYTES # (AUTO) 0.7 X10'3 (0-0.9); NEUTROPHILS # (AUTO) 20.9 X10'3 (1.8-7.7); NEUTROPHILS % (AUTO) 93.6 % (42-75); PLATELET COUNT 255 X10'3 (140-440); RED BLOOD COUNT 3.54 X10'6 (4.70-6.10); RED CELL DISTRIBUTION WIDTH 12.1 % (11.5-14.5); WHITE BLOOD COUNT 22.4 X10'3 (4.5-11.0)
[2018-10-10 18:56] LABS: ALBUMIN 2.4 G/DL (3.4-5.0); ANION GAP 10 (8-16); BLOOD UREA NITROGEN 17 MG/DL (7-18); BUN/CREATININE RATIO 9.2 (5.4-32.0); CALCIUM 7.9 MG/DL (8.5-10.1); CHLORIDE 105 MMOL/L (99-107); CREATININE 1.84 MG/DL (0.60-1.10); GLUCOSE 166 MG/DL (70-104); MAGNESIUM 2.8 MG/DL (1.5-2.4); PHOSPHORUS 2.5 MG/DL (2.3-4.5); POTASSIUM 4.1 MMOL/L (3.5-5.1); SODIUM 139 MMOL/L (135-145); TOTAL CARBON DIOXIDE 24.4 MMOL/L (24-32); eGFR 38 ML/MIN
[2018-10-10] MEDS: docusate sod 100mg capsule PO SCH (19:50)
[2018-10-10] MEDS: vancomycin/NS 1 GM ADD-VANTAGE 250 ML IV SCH (20:17)
[2018-10-10] MEDS: mupirocin 2% nasal ointment 1gm UD NS SCH (20:17)
[2018-10-11] VITALS (24 sets, daily range): BP systolic 119–178; BP diastolic 56–92
[2018-10-11] MEDS: niCARDipine-NS 40mg/200ml IVPB 200 ML IV PRN ×2 (00:10→04:25)
[2018-10-11] MEDS: morphine 4 MG/ML inj SYRINge IV PRN ×3 (00:12→02:56)
[2018-10-11] MEDS: ringers solution, lacted 1,000 ML IV SCH ×2 (01:14→22:00)
[2018-10-11 02:16] LABS: BASOPHILS % (AUTO) 0.1 % (0-1); EOSINOPHILS # (AUTO) 0.1 X10'3 (0-0.9); EOSINOPHILS % (AUTO) 0.4 % (0-6); HEMATOCRIT 28.3 % (42.0-52.0); HEMOGLOBIN 9.4 g/dl (14.0-17.9); LYMPHOCYTES # (AUTO) 0.9 X10'3 (1.1-4.8); LYMPHOCYTES % (AUTO) 3.6 % (21-51); MEAN CORPUSCULAR HEMOGLOBIN 30.4 PG (27.0-31.0); MEAN CORPUSCULAR HGB CONC 33.3 % (33.0-36.5); MEAN CORPUSCULAR VOLUME 91.2 FL (78-98); MEAN PLATELET VOLUME 8.4 FL (7.4-10.4); MONOCYTES # (AUTO) 1.1 X10'3 (0-0.9); MONOCYTES % (AUTO) 4.6 % (2-12); NEUTROPHILS # (AUTO) 21.8 X10'3 (1.8-7.7); NEUTROPHILS % (AUTO) 91.3 % (42-75); PLATELET COUNT 219 X10'3 (140-440); RED BLOOD COUNT 3.11 X10'6 (4.70-6.10); RED CELL DISTRIBUTION WIDTH 12.6 % (11.5-14.5); WHITE BLOOD COUNT 23.9 X10'3 (4.5-11.0)
[2018-10-11 02:32] LABS: ALANINE AMINOTRANSFERASE 46 U/L (12-78); ALBUMIN 2.3 G/DL (3.4-5.0); ALBUMIN/GLOBULIN RATIO 0.7 (1.1-1.5); ALKALINE PHOSPHATASE 47 IU/L (46-116); ANION GAP 11 (8-16); ASPARTATE AMINO TRANSFERASE 63 U/L (10-37); BILIRUBIN,TOTAL 0.4 MG/DL (0.1-1.0); BLOOD UREA NITROGEN 16 MG/DL (7-18); BUN/CREATININE RATIO 9.9 (5.4-32.0); CALCIUM 7.5 MG/DL (8.5-10.1); CHLORIDE 105 MMOL/L (99-107); CREATININE 1.61 MG/DL (0.60-1.10); GLUCOSE 144 MG/DL (70-104); MAGNESIUM 2.5 MG/DL (1.5-2.4); PHOSPHORUS 4.4 MG/DL (2.3-4.5); POTASSIUM 4.6 MMOL/L (3.5-5.1); SODIUM 139 MMOL/L (135-145); TOTAL PROTEIN 5.7 G/DL (6.4-8.2); eGFR 45 ML/MIN
[2018-10-11 02:38] LABS: INR 0.9 INR; PARTIAL THROMBOPLASTIN TIME 29 SECONDS (22-32); PROTHROMBIN TIME 9.6 SECONDS (9.0-12.0)
[2018-10-11] MEDS: HYDROcodone/acetaminophen 10/325mg tab PO PRN ×4 (05:36→20:28)
[2018-10-11] MEDS: insulin regular, human inj. 100 UNITS in normal saline 100ml IV soln 100 ML IV SCH ×6 (05:36→23:28)
[2018-10-11] MEDS ORDERED: aspirin 325mg tablet, delayed-release (Ecotrin) PO SCH (08:00)
[2018-10-11] MEDS ORDERED: metoprolol tartrate 12.5mg (1/2 tablet) PO SCH (08:00)
[2018-10-11] MEDS: docusate sod 100mg capsule PO SCH ×2 (08:34→20:29)
[2018-10-11] MEDS: atorvastatin 10mg tablet PO SCH (08:34)
[2018-10-11] MEDS: mupirocin 2% nasal ointment 1gm UD NS SCH ×2 (08:35→20:27)
[2018-10-11] MEDS: ceFAZolin 1GM/D5W- ADD-VANTAGE 50 ML IV SCH ×2 (08:35→15:46)
[2018-10-11] MEDS: metoprolol tartrate 25mg tablet PO SCH ×2 (08:35→20:28)
[2018-10-11] MEDS: vancomycin/NS 1 GM ADD-VANTAGE 250 ML IV SCH ×2 (08:36→20:27)
[2018-10-11] MEDS: insulin Lispro (HumaLOG) vial - multi-dose SQ SCH ×3 (09:00→20:34)
[2018-10-11] MEDS: lactobacillus rhamnosus 10,000 MMU CELLS/CAPSULE PO SCH (20:29)
[2018-10-11] MEDS ORDERED: morphine 2 MG/ML inj. syringe ONE (22:31)
[2018-10-12] VITALS (35 sets, daily range): BP systolic 115–189; BP diastolic 68–100
[2018-10-12] MEDS: insulin regular, human inj. 100 UNITS in normal saline 100ml IV soln 100 ML IV SCH ×4 (00:27→01:36)
[2018-10-12] MEDS: ceFAZolin 1GM/D5W- ADD-VANTAGE 50 ML IV SCH (00:33)
[2018-10-12] MEDS: HYDROcodone/acetaminophen 10/325mg tab PO PRN ×3 (00:57→22:19)
[2018-10-12 02:52] LABS: BASOPHILS % (AUTO) 0.1 % (0-1); EOSINOPHILS % (AUTO) 0 % (0-6); HEMOGLOBIN 7.2 g/dl (14.0-17.9); LYMPHOCYTES % (AUTO) 5.4 % (21-51); MEAN CORPUSCULAR HEMOGLOBIN 29.9 PG (27.0-31.0); MEAN CORPUSCULAR HGB CONC 32.9 % (33.0-36.5); MEAN CORPUSCULAR VOLUME 90.8 FL (78-98); MEAN PLATELET VOLUME 8.3 FL (7.4-10.4); MONOCYTES # (AUTO) 1.3 X10'3 (0-0.9); MONOCYTES % (AUTO) 7.1 % (2-12); NEUTROPHILS % (AUTO) 87.4 % (42-75); PLATELET COUNT 234 X10'3 (140-440); RED BLOOD COUNT 2.41 X10'6 (4.70-6.10); RED CELL DISTRIBUTION WIDTH 12.6 % (11.5-14.5); WHITE BLOOD COUNT 18.3 X10'3 (4.5-11.0)
[2018-10-12 02:57] LABS: HEMATOCRIT 21.9 % (42.0-52.0)
[2018-10-12 03:05] LABS: ALBUMIN 2.1 G/DL (3.4-5.0); ANION GAP 9 (8-16); BLOOD UREA NITROGEN 25 MG/DL (7-18); BUN/CREATININE RATIO 13.9 (5.4-32.0); CALCIUM 7.1 MG/DL (8.5-10.1); CHLORIDE 99 MMOL/L (99-107); GLUCOSE 213 MG/DL (70-104); MAGNESIUM 2.4 MG/DL (1.5-2.4); PHOSPHORUS 3.8 MG/DL (2.3-4.5); SODIUM 131 MMOL/L (135-145); TOTAL CARBON DIOXIDE 23.2 MMOL/L (24-32); eGFR 39 ML/MIN
[2018-10-12 03:10] LABS: POTASSIUM 4.9 MMOL/L (3.5-5.1)
[2018-10-12] MEDS: magnesium 1gm/100ml D5W IVPB 100 ML IV PRN ×2 (04:03→04:50)
[2018-10-12] MEDS ORDERED: furosemide 40mg/4ml inj IV ONE (06:00)
[2018-10-12] MEDS ORDERED: glucagon, human recombinant 1mg kit SUBCUT PRN (08:00)
[2018-10-12] MEDS ORDERED: MESSAGE TO PHARMACY PO ONE (08:00)
[2018-10-12] MEDS ORDERED: dextrose 50%-water 50ml dispensing syringe IV PRN ×2 (08:00)
[2018-10-12] MEDS ORDERED: dextrose ORAL solution 15 GM/59 ML bottle PO PRN ×2 (08:00)
[2018-10-12] MEDS: mupirocin 2% nasal ointment 1gm UD NS SCH (08:31)
[2018-10-12] MEDS: aspirin 81mg tablet.DR PO SCH (08:31)
[2018-10-12] MEDS: pantoprazole 40mg Tablet.DR PO SCH (08:31)
[2018-10-12] MEDS: atorvastatin 10mg tablet PO SCH (08:31)
[2018-10-12] MEDS: docusate sod 100mg capsule PO SCH ×2 (08:32→21:00)
[2018-10-12] MEDS: lisinopril 5mg tablet PO SCH (08:32)
[2018-10-12] MEDS: lactobacillus rhamnosus 10,000 MMU CELLS/CAPSULE PO SCH ×2 (08:32→21:00)
[2018-10-12] MEDS: metoprolol tartrate 25mg tablet PO SCH ×2 (08:37→21:01)
[2018-10-12] MEDS: insulin Lispro (HumaLOG) vial - multi-dose SQ SCH ×3 (09:07→19:01)
[2018-10-12] MEDS: sodium chloride 0.45% 1,000 ML IV SCH (11:50)
[2018-10-12] MEDS ORDERED: heparin 10,000 units/1 ML INJ ONE ×2 (13:25→14:01)
[2018-10-12] MEDS ORDERED: heparin 10,000 units/1 ML INJ IV ONE (13:35)
[2018-10-12] MEDS ORDERED: LIDOcaine 1% (10mg/ml) 2ml vial ONE (13:48)
[2018-10-12] MEDS ORDERED: sevoflurane 250ml liquid IH ONE ×2 (13:55→19:39)
[2018-10-12] MEDS ORDERED: phenylephrine 10mg/ml inj. ONE (13:55)
[2018-10-12] MEDS ORDERED: nitroGLYCERIN in D5W 50mg/250ml (Tridil) infusion IV ONE (13:55)
[2018-10-12] MEDS ORDERED: fentaNYL /PF 50mcg/ml 5ml ampule ONE (13:55)
[2018-10-12] MEDS ORDERED: MIDAZolam 5mg/5ml vial ONE (13:55)
[2018-10-12] MEDS ORDERED: dexamethasone sod phosphate 4mg/ml inj. ONE (14:27)
[2018-10-12] MEDS ORDERED: ondansetron/PF 4mg/2ml inj ONE (14:28)
[2018-10-12] MEDS ORDERED: ePHEDrine 50MG/ML INJ. ONE (14:31)
[2018-10-12] MEDS ORDERED: heparin 1,000unit/ml 10ml vial 10 ML ONE (14:41)
[2018-10-12] MEDS ORDERED: albumin (Human) 5% 250ml 250 ML IV ONE ×2 (14:44)
[2018-10-12] MEDS ORDERED: ringers solution, lacted 1,000 ML IV SCH (14:54)
[2018-10-12] MEDS ORDERED: morphine 4 MG/ML inj SYRINge IV PRN (14:55)
[2018-10-12] MEDS ORDERED: ondansetron/PF 4mg/2ml inj IV PRN (14:55)
[2018-10-12] MEDS ORDERED: hydrALAZINE 20mg/ml inj. IV PRN (14:55)
[2018-10-12] MEDS ORDERED: labetalol 20mg/4ml (5mg/ml) syringe IV PRN (14:55)
[2018-10-12] MEDS ORDERED: fentaNYL/PF 50MCG/1 ML 2ML syringe IV PRN ×2 (14:55)
[2018-10-12] MEDS ORDERED: rocuronium 10mg/ml inj IV ONE (15:43)
[2018-10-12] MEDS: morphine 4 MG/ML inj SYRINge IV PRN ×3 (16:52→23:22)
[2018-10-12] MEDS ORDERED: fentaNYL/PF 50MCG/1 ML 2ML syringe ONE (19:18)
[2018-10-12] MEDS ORDERED: midazolam 2 mg/2 ml injection ONE (19:18)
[2018-10-12] MEDS ORDERED: LIDOcaine 1%/PF 5ML 10 MG/ML VIAL ONE (19:25)
[2018-10-12] MEDS ORDERED: succinylcholine 20mg/ml inj IV ONE (19:25)
[2018-10-12] MEDS ORDERED: propofol inj 20 ML IV ONE (19:25)
[2018-10-12] MEDS: ringers solution, lacted 1,000 ML IV SCH (20:30)
[2018-10-12] MEDS: insulin glargine (Lantus) pen - multi-dose SQ SCH (21:04)
[2018-10-13] VITALS (30 sets, daily range): BP systolic 118–159; BP diastolic 49–91
[2018-10-13] MEDS: sodium chloride 0.45% 1,000 ML IV SCH (01:51)
[2018-10-13 03:06] LABS: BASOPHILS # (AUTO) 0.1 X10'3 (0-0.2); BASOPHILS % (AUTO) 0.4 % (0-1); EOSINOPHILS # (AUTO) 0.2 X10'3 (0-0.9); LYMPHOCYTES # (AUTO) 1.7 X10'3 (1.1-4.8); LYMPHOCYTES % (AUTO) 10.3 % (21-51); MEAN CORPUSCULAR HEMOGLOBIN 30.4 PG (27.0-31.0); MEAN CORPUSCULAR HGB CONC 33.2 % (33.0-36.5); MEAN CORPUSCULAR VOLUME 91.6 FL (78-98); MEAN PLATELET VOLUME 8.2 FL (7.4-10.4); MONOCYTES % (AUTO) 6.3 % (2-12); NEUTROPHILS # (AUTO) 13.3 X10'3 (1.8-7.7); PLATELET COUNT 240 X10'3 (140-440); RED BLOOD COUNT 2.01 X10'6 (4.70-6.10); RED CELL DISTRIBUTION WIDTH 12.7 % (11.5-14.5); WHITE BLOOD COUNT 16.2 X10'3 (4.5-11.0)
[2018-10-13 03:12] LABS: HEMATOCRIT 18.4 % (42.0-52.0); HEMOGLOBIN 6.1 g/dl (14.0-17.9)
[2018-10-13 03:31] LABS: ALBUMIN 2.3 G/DL (3.4-5.0); ANION GAP 6 (8-16); BLOOD UREA NITROGEN 28 MG/DL (7-18); BUN/CREATININE RATIO 16.6 (5.4-32.0); CALCIUM 6.9 MG/DL (8.5-10.1); CHLORIDE 100 MMOL/L (99-107); CREATININE 1.69 MG/DL (0.60-1.10); GLUCOSE 262 MG/DL (70-104); MAGNESIUM 2.4 MG/DL (1.5-2.4); POTASSIUM 4.7 MMOL/L (3.5-5.1); SODIUM 134 MMOL/L (135-145); eGFR 42 ML/MIN
[2018-10-13] MEDS: magnesium 1gm/100ml D5W IVPB 100 ML IV PRN ×2 (05:08→11:34)
[2018-10-13] MEDS: morphine 4 MG/ML inj SYRINge IV PRN ×2 (06:04→15:21)
[2018-10-13] MEDS: lisinopril 5mg tablet PO SCH (08:07)
[2018-10-13] MEDS: metoprolol tartrate 25mg tablet PO SCH ×2 (08:07→20:43)
[2018-10-13] MEDS: atorvastatin 10mg tablet PO SCH (08:07)
[2018-10-13] MEDS: docusate sod 100mg capsule PO SCH ×2 (08:07→20:42)
[2018-10-13] MEDS: lactobacillus rhamnosus 10,000 MMU CELLS/CAPSULE PO SCH ×2 (08:07→20:42)
[2018-10-13] MEDS: HYDROcodone/acetaminophen 10/325mg tab PO PRN ×2 (08:07→19:07)
[2018-10-13] MEDS: pantoprazole 40mg Tablet.DR PO SCH (08:07)
[2018-10-13] MEDS: aspirin 81mg tablet.DR PO SCH (08:07)
[2018-10-13] MEDS: insulin Lispro (HumaLOG) vial - multi-dose SQ SCH ×2 (09:00→22:30)
[2018-10-13] MEDS: ringers solution, lacted 1,000 ML IV SCH (14:00)
[2018-10-13] MEDS ORDERED: dextrose 5%-water 1,000 ML IV SCH (14:55)
[2018-10-13] MEDS ORDERED: heparin 10,000 units/1 ML INJ IV ONE (16:45)
[2018-10-13 18:15] LABS: INR 0.9 INR; PROTHROMBIN TIME 9.4 SECONDS (9.0-12.0)
[2018-10-13] MEDS: heparin 25,000 UNIT/250ml bag 250 ML IV SCH (19:29)
[2018-10-13 20:16] LABS: BASOPHILS % (AUTO) 0.3 % (0-1); EOSINOPHILS # (AUTO) 0.1 X10'3 (0-0.9); EOSINOPHILS % (AUTO) 0.8 % (0-6); HEMATOCRIT 23.5 % (42.0-52.0); HEMOGLOBIN 7.9 g/dl (14.0-17.9); LYMPHOCYTES # (AUTO) 2.7 X10'3 (1.1-4.8); LYMPHOCYTES % (AUTO) 16.7 % (21-51); MEAN CORPUSCULAR HEMOGLOBIN 30.5 PG (27.0-31.0); MEAN CORPUSCULAR HGB CONC 33.4 % (33.0-36.5); MEAN CORPUSCULAR VOLUME 91.2 FL (78-98); MEAN PLATELET VOLUME 8.1 FL (7.4-10.4); MONOCYTES # (AUTO) 1.3 X10'3 (0-0.9); MONOCYTES % (AUTO) 7.9 % (2-12); NEUTROPHILS # (AUTO) 11.9 X10'3 (1.8-7.7); NEUTROPHILS % (AUTO) 74.3 % (42-75); PLATELET COUNT 313 X10'3 (140-440); RED BLOOD COUNT 2.57 X10'6 (4.70-6.10); WHITE BLOOD COUNT 15.9 X10'3 (4.5-11.0)
[2018-10-13] MEDS: insulin glargine (Lantus) pen - multi-dose SQ SCH (22:29)
[2018-10-14] VITALS (20 sets, daily range): BP systolic 106–161; BP diastolic 63–95
[2018-10-14 03:13] LABS: BASOPHILS # (AUTO) 0.1 X10'3 (0-0.2); BASOPHILS % (AUTO) 0.3 % (0-1); EOSINOPHILS # (AUTO) 0.2 X10'3 (0-0.9); HEMATOCRIT 25.3 % (42.0-52.0); HEMOGLOBIN 8.4 g/dl (14.0-17.9); LYMPHOCYTES # (AUTO) 3.2 X10'3 (1.1-4.8); LYMPHOCYTES % (AUTO) 19.5 % (21-51); MEAN CORPUSCULAR HEMOGLOBIN 30.2 PG (27.0-31.0); MEAN CORPUSCULAR HGB CONC 33.2 % (33.0-36.5); MEAN CORPUSCULAR VOLUME 91.1 FL (78-98); MONOCYTES # (AUTO) 1.3 X10'3 (0-0.9); MONOCYTES % (AUTO) 7.8 % (2-12); NEUTROPHILS # (AUTO) 11.7 X10'3 (1.8-7.7); NEUTROPHILS % (AUTO) 71.4 % (42-75); PLATELET COUNT 362 X10'3 (140-440); RED BLOOD COUNT 2.78 X10'6 (4.70-6.10); RED CELL DISTRIBUTION WIDTH 12.9 % (11.5-14.5); WHITE BLOOD COUNT 16.3 X10'3 (4.5-11.0)
[2018-10-14 03:30] LABS: ALANINE AMINOTRANSFERASE 62 U/L (12-78); ALBUMIN 2.4 G/DL (3.4-5.0); ALBUMIN/GLOBULIN RATIO 0.6 (1.1-1.5); ALKALINE PHOSPHATASE 69 IU/L (46-116); ANION GAP 4 (8-16); ASPARTATE AMINO TRANSFERASE 38 U/L (10-37); BILIRUBIN,TOTAL 0.4 MG/DL (0.1-1.0); BLOOD UREA NITROGEN 27 MG/DL (7-18); CALCIUM 7.3 MG/DL (8.5-10.1); CHLORIDE 102 MMOL/L (99-107); CREATININE 1.69 MG/DL (0.60-1.10); GLUCOSE 114 MG/DL (70-104); MAGNESIUM 2.4 MG/DL (1.5-2.4); POTASSIUM 4.2 MMOL/L (3.5-5.1); SODIUM 136 MMOL/L (135-145); TOTAL PROTEIN 6.1 G/DL (6.4-8.2); eGFR 42 ML/MIN
[2018-10-14] MEDS: HYDROcodone/acetaminophen 10/325mg tab PO PRN ×2 (03:33→16:49)
[2018-10-14] MEDS: heparin 10,000 units/1 ML INJ IV PRN ×2 (03:46→16:50)
[2018-10-14] MEDS: heparin 25,000 UNIT/250ml bag 250 ML IV SCH ×3 (03:47→16:52)
[2018-10-14] MEDS ORDERED: NORMAL SALINE IV ONE (04:25)
[2018-10-14] MEDS ORDERED: POTASSIUM CL IV ONE (04:25)
[2018-10-14] MEDS: lactobacillus rhamnosus 10,000 MMU CELLS/CAPSULE PO SCH ×2 (07:17→19:39)
[2018-10-14] MEDS: atorvastatin 10mg tablet PO SCH (07:17)
[2018-10-14] MEDS: metoprolol tartrate 25mg tablet PO SCH ×2 (07:17→19:41)
[2018-10-14] MEDS: lisinopril 5mg tablet PO SCH (07:17)
[2018-10-14] MEDS: potassium Cl 20 mEq SR tablet PO SCH ×2 (07:18→19:40)
[2018-10-14] MEDS: aspirin 81mg tablet.DR PO SCH (07:18)
[2018-10-14] MEDS: docusate sod 100mg capsule PO SCH ×2 (07:18→19:40)
[2018-10-14] MEDS: pantoprazole 40mg Tablet.DR PO SCH (07:18)
[2018-10-14] MEDS: morphine 4 MG/ML inj SYRINge IV PRN ×4 (07:22→21:02)
[2018-10-14] MEDS: insulin Lispro (HumaLOG) vial - multi-dose SQ SCH ×3 (09:47→19:52)
[2018-10-14] MEDS: sodium chloride 0.45% 1,000 ML IV SCH (12:06)
[2018-10-14] MEDS: insulin glargine (Lantus) pen - multi-dose SQ SCH (19:51)
[2018-10-15] VITALS (13 sets, daily range): BP systolic 113–156; BP diastolic 69–89
[2018-10-15 00:49] LABS: BASOPHILS % (AUTO) 0.3 % (0-1); EOSINOPHILS # (AUTO) 0.3 X10'3 (0-0.9); EOSINOPHILS % (AUTO) 2.1 % (0-6); HEMOGLOBIN 9.7 g/dl (14.0-17.9); LYMPHOCYTES % (AUTO) 18.2 % (21-51); MEAN CORPUSCULAR HEMOGLOBIN 30.5 PG (27.0-31.0); MEAN CORPUSCULAR HGB CONC 33.4 % (33.0-36.5); MEAN CORPUSCULAR VOLUME 91.4 FL (78-98); MEAN PLATELET VOLUME 7.5 FL (7.4-10.4); MONOCYTES # (AUTO) 1.3 X10'3 (0-0.9); MONOCYTES % (AUTO) 7.7 % (2-12); NEUTROPHILS # (AUTO) 11.6 X10'3 (1.8-7.7); NEUTROPHILS % (AUTO) 71.7 % (42-75); PLATELET COUNT 438 X10'3 (140-440); RED BLOOD COUNT 3.17 X10'6 (4.70-6.10); RED CELL DISTRIBUTION WIDTH 12.7 % (11.5-14.5); WHITE BLOOD COUNT 16.2 X10'3 (4.5-11.0)
[2018-10-15] MEDS: HYDROcodone/acetaminophen 10/325mg tab PO PRN ×4 (00:53→20:24)
[2018-10-15 01:04] LABS: ALANINE AMINOTRANSFERASE 63 U/L (12-78); ALBUMIN 2.6 G/DL (3.4-5.0); ALBUMIN/GLOBULIN RATIO 0.6 (1.1-1.5); ALKALINE PHOSPHATASE 79 IU/L (46-116); ANION GAP 7 (8-16); ASPARTATE AMINO TRANSFERASE 35 U/L (10-37); BILIRUBIN,TOTAL 0.4 MG/DL (0.1-1.0); BLOOD UREA NITROGEN 21 MG/DL (7-18); BUN/CREATININE RATIO 13.6 (5.4-32.0); CHLORIDE 100 MMOL/L (99-107); CREATININE 1.54 MG/DL (0.60-1.10); GLUCOSE 106 MG/DL (70-104); MAGNESIUM 2.1 MG/DL (1.5-2.4); PHOSPHORUS 2.5 MG/DL (2.3-4.5); POTASSIUM 5.1 MMOL/L (3.5-5.1); SODIUM 136 MMOL/L (135-145); TOTAL CARBON DIOXIDE 29.3 MMOL/L (24-32); TOTAL PROTEIN 6.9 G/DL (6.4-8.2); eGFR 47 ML/MIN
[2018-10-15] MEDS: heparin 10,000 units/1 ML INJ IV PRN ×3 (01:30→15:35)
[2018-10-15] MEDS: heparin 25,000 UNIT/250ml bag 250 ML IV SCH ×4 (01:31→21:29)
[2018-10-15] MEDS: morphine 4 MG/ML inj SYRINge IV PRN ×3 (06:41→22:07)
[2018-10-15] MEDS ORDERED: potassium Cl 40MEQ/NS 500ml 500 ML IV PRN ×2 (07:10)
[2018-10-15] MEDS ORDERED: magnesium Cl slow-release 64mg tablet PO PRN (07:10)
[2018-10-15] MEDS ORDERED: potassium Cl 20 mEq SR tablet PO PRN ×2 (07:10)
[2018-10-15] MEDS ORDERED: magnesium 1gm/100ml D5W IVPB 100 ML IV PRN (07:10)
[2018-10-15] MEDS ORDERED: magnesium 4gm in 100ml NS 100 ML IV PRN (07:10)
[2018-10-15] MEDS: metoprolol tartrate 25mg tablet PO SCH ×2 (07:26→20:22)
[2018-10-15] MEDS: lisinopril 5mg tablet PO SCH (07:26)
[2018-10-15] MEDS: magnesium Cl slow-release 64mg tablet PO SCH ×2 (07:26→20:00)
[2018-10-15] MEDS: pantoprazole 40mg Tablet.DR PO SCH (07:27)
[2018-10-15] MEDS: lactobacillus rhamnosus 10,000 MMU CELLS/CAPSULE PO SCH ×2 (07:27→20:22)
[2018-10-15] MEDS: atorvastatin 10mg tablet PO SCH (07:27)
[2018-10-15] MEDS: aspirin 81mg tablet.DR PO SCH (07:27)
[2018-10-15] MEDS: docusate sod 100mg capsule PO SCH ×2 (07:28→20:20)
[2018-10-15] MEDS: K and/or MAG REPLACEMENT MC SCH (07:31)
[2018-10-15] MEDS: potassium Cl 20 mEq SR tablet PO SCH ×2 (07:31→20:00)
[2018-10-15] MEDS: insulin Lispro (HumaLOG) vial - multi-dose SQ SCH ×2 (08:19→19:11)
[2018-10-15] MEDS ORDERED: heparin 25,000 UNIT/250ml bag 250 ML IV SCH (15:07)
[2018-10-15] MEDS: insulin glargine (Lantus) pen - multi-dose SQ SCH (21:30)
[2018-10-16] VITALS (7 sets, daily range): BP systolic 115–146; BP diastolic 66–87
[2018-10-16] MEDS: morphine 4 MG/ML inj SYRINge IV PRN ×3 (02:21→08:38)
[2018-10-16 05:07] LABS: BASOPHILS # (AUTO) 0.1 X10'3 (0-0.2); BASOPHILS % (AUTO) 0.4 % (0-1); EOSINOPHILS # (AUTO) 0.3 X10'3 (0-0.9); EOSINOPHILS % (AUTO) 2.3 % (0-6); HEMATOCRIT 28.3 % (42.0-52.0); HEMOGLOBIN 9.3 g/dl (14.0-17.9); LYMPHOCYTES # (AUTO) 2.7 X10'3 (1.1-4.8); LYMPHOCYTES % (AUTO) 18.3 % (21-51); MEAN CORPUSCULAR HEMOGLOBIN 30.3 PG (27.0-31.0); MEAN CORPUSCULAR HGB CONC 32.9 % (33.0-36.5); MEAN CORPUSCULAR VOLUME 92.1 FL (78-98); MEAN PLATELET VOLUME 7.4 FL (7.4-10.4); MONOCYTES # (AUTO) 1.4 X10'3 (0-0.9); MONOCYTES % (AUTO) 9.6 % (2-12); NEUTROPHILS # (AUTO) 10.4 X10'3 (1.8-7.7); NEUTROPHILS % (AUTO) 69.4 % (42-75); PLATELET COUNT 463 X10'3 (140-440); RED BLOOD COUNT 3.08 X10'6 (4.70-6.10); RED CELL DISTRIBUTION WIDTH 12.9 % (11.5-14.5); WHITE BLOOD COUNT 14.9 X10'3 (4.5-11.0)
[2018-10-16 05:25] LABS: ALBUMIN 2.2 G/DL (3.4-5.0); ANION GAP 6 (8-16); BLOOD UREA NITROGEN 19 MG/DL (7-18); BUN/CREATININE RATIO 13.6 (5.4-32.0); CALCIUM 8.2 MG/DL (8.5-10.1); CHLORIDE 100 MMOL/L (99-107); GLUCOSE 132 MG/DL (70-104); MAGNESIUM 1.9 MG/DL (1.5-2.4); POTASSIUM 4.9 MMOL/L (3.5-5.1); SODIUM 134 MMOL/L (135-145); TOTAL CARBON DIOXIDE 28.1 MMOL/L (24-32); eGFR 52 ML/MIN
[2018-10-16] MEDS: heparin 25,000 UNIT/250ml bag 250 ML IV SCH ×2 (07:11→15:50)
[2018-10-16] MEDS: K and/or MAG REPLACEMENT MC SCH (08:00)
[2018-10-16] MEDS: atorvastatin 10mg tablet PO SCH (08:36)
[2018-10-16] MEDS: magnesium Cl slow-release 64mg tablet PO SCH ×2 (08:36→20:14)
[2018-10-16] MEDS: pantoprazole 40mg Tablet.DR PO SCH (08:36)
[2018-10-16] MEDS: lisinopril 5mg tablet PO SCH (08:36)
[2018-10-16] MEDS: lactobacillus rhamnosus 10,000 MMU CELLS/CAPSULE PO SCH ×2 (08:36→20:13)
[2018-10-16] MEDS: metoprolol tartrate 25mg tablet PO SCH ×2 (08:36→20:13)
[2018-10-16] MEDS: docusate sod 100mg capsule PO SCH ×2 (08:36→20:13)
[2018-10-16] MEDS: aspirin 81mg tablet.DR PO SCH (08:37)
[2018-10-16] MEDS: potassium Cl 20 mEq SR tablet PO SCH ×2 (08:37→19:42)
[2018-10-16] MEDS: insulin Lispro (HumaLOG) vial - multi-dose SQ SCH ×2 (09:52→13:03)
[2018-10-16] MEDS: oxyCODONE IR 5mg (immed. release) tablet PO PRN ×3 (11:40→20:16)
[2018-10-16] MEDS: gabapentin 100mg capsule PO SCH ×2 (13:00→20:10)
[2018-10-16] MEDS ORDERED: gabapentin 100mg capsule PO SCH (13:00)
[2018-10-16] MEDS: heparin 10,000 units/1 ML INJ IV PRN (15:49)
[2018-10-16] MEDS: insulin glargine (Lantus) pen - multi-dose SQ SCH (22:08)
[2018-10-17] MEDS: oxyCODONE IR 5mg (immed. release) tablet PO PRN ×5 (01:38→20:15)
[2018-10-17 03:00] VITALS: BP 121/72
[2018-10-17] MEDS: heparin 25,000 UNIT/250ml bag 250 ML IV SCH ×2 (04:38→19:25)
[2018-10-17] MEDS: morphine 4 MG/ML inj SYRINge IV PRN ×4 (04:45→22:20)
[2018-10-17 06:00] VITALS: BP 128/81
[2018-10-17 06:15] LABS: BASOPHILS # (AUTO) 0.1 X10'3 (0-0.2); BASOPHILS % (AUTO) 0.8 % (0-1); EOSINOPHILS # (AUTO) 0.3 X10'3 (0-0.9); EOSINOPHILS % (AUTO) 2.3 % (0-6); HEMATOCRIT 27.6 % (42.0-52.0); HEMOGLOBIN 9.1 g/dl (14.0-17.9); LYMPHOCYTES # (AUTO) 2.1 X10'3 (1.1-4.8); LYMPHOCYTES % (AUTO) 15.4 % (21-51); MEAN CORPUSCULAR HGB CONC 32.9 % (33.0-36.5); MEAN CORPUSCULAR VOLUME 91.3 FL (78-98); MEAN PLATELET VOLUME 7.8 FL (7.4-10.4); MONOCYTES # (AUTO) 1.4 X10'3 (0-0.9); MONOCYTES % (AUTO) 10.2 % (2-12); NEUTROPHILS % (AUTO) 71.3 % (42-75); PLATELET COUNT 480 X10'3 (140-440); RED BLOOD COUNT 3.03 X10'6 (4.70-6.10); RED CELL DISTRIBUTION WIDTH 13.2 % (11.5-14.5)
[2018-10-17 06:31] LABS: ALBUMIN 2.4 G/DL (3.4-5.0); ANION GAP 7 (8-16); BLOOD UREA NITROGEN 19 MG/DL (7-18); BUN/CREATININE RATIO 11.9 (5.4-32.0); CALCIUM 8.6 MG/DL (8.5-10.1); CHLORIDE 97 MMOL/L (99-107); GLUCOSE 165 MG/DL (70-104); MAGNESIUM 1.9 MG/DL (1.5-2.4); POTASSIUM 4.8 MMOL/L (3.5-5.1); SODIUM 132 MMOL/L (135-145); TOTAL CARBON DIOXIDE 28.1 MMOL/L (24-32); eGFR 45 ML/MIN
[2018-10-17] MEDS: pantoprazole 40mg Tablet.DR PO SCH (06:51)
[2018-10-17] MEDS: K and/or MAG REPLACEMENT MC SCH (08:00)
[2018-10-17] MEDS: potassium Cl 20 mEq SR tablet PO SCH ×2 (08:00→20:00)
[2018-10-17] MEDS: gabapentin 100mg capsule PO SCH ×3 (08:00→20:07)
[2018-10-17] MEDS: insulin Lispro (HumaLOG) vial - multi-dose SQ SCH ×3 (08:24→19:14)
[2018-10-17] MEDS: lisinopril 5mg tablet PO SCH (08:30)
[2018-10-17] MEDS: docusate sod 100mg capsule PO SCH ×2 (08:30→20:18)
[2018-10-17] MEDS: aspirin 81mg tablet.DR PO SCH (08:30)
[2018-10-17] MEDS: lactobacillus rhamnosus 10,000 MMU CELLS/CAPSULE PO SCH ×2 (08:30→20:18)
[2018-10-17] MEDS: metoprolol tartrate 25mg tablet PO SCH ×2 (08:30→20:18)
[2018-10-17] MEDS: atorvastatin 10mg tablet PO SCH (08:30)
[2018-10-17] MEDS: magnesium Cl slow-release 64mg tablet PO SCH ×2 (08:31→20:19)
[2018-10-17 11:00] VITALS: BP 123/77
[2018-10-17 15:00] VITALS: BP 116/66
[2018-10-17 19:00] VITALS: BP 114/64
[2018-10-17] MEDS: insulin glargine (Lantus) pen - multi-dose SQ SCH (20:42)
[2018-10-17 23:00] VITALS: BP 108/67
[2018-10-18] MEDS: oxyCODONE IR 5mg (immed. release) tablet PO PRN ×6 (00:20→22:37)
[2018-10-18] MEDS: morphine 4 MG/ML inj SYRINge IV PRN ×5 (02:06→21:20)
[2018-10-18 03:00] VITALS: BP 111/65
[2018-10-18 05:41] LABS: BASOPHILS # (AUTO) 0.1 X10'3 (0-0.2); BASOPHILS % (AUTO) 0.5 % (0-1); EOSINOPHILS # (AUTO) 0.2 X10'3 (0-0.9); EOSINOPHILS % (AUTO) 2.1 % (0-6); HEMATOCRIT 27.7 % (42.0-52.0); HEMOGLOBIN 9.2 g/dl (14.0-17.9); LYMPHOCYTES # (AUTO) 1.6 X10'3 (1.1-4.8); MEAN CORPUSCULAR HEMOGLOBIN 30.7 PG (27.0-31.0); MEAN CORPUSCULAR HGB CONC 33.3 % (33.0-36.5); MEAN CORPUSCULAR VOLUME 92.4 FL (78-98); MEAN PLATELET VOLUME 7.9 FL (7.4-10.4); MONOCYTES # (AUTO) 1.2 X10'3 (0-0.9); MONOCYTES % (AUTO) 10.5 % (2-12); NEUTROPHILS # (AUTO) 7.9 X10'3 (1.8-7.7); NEUTROPHILS % (AUTO) 71.9 % (42-75); PLATELET COUNT 462 X10'3 (140-440); RED CELL DISTRIBUTION WIDTH 13.4 % (11.5-14.5)
[2018-10-18 05:56] LABS: ALBUMIN 2.4 G/DL (3.4-5.0); ANION GAP 8 (8-16); BLOOD UREA NITROGEN 21 MG/DL (7-18); BUN/CREATININE RATIO 11.4 (5.4-32.0); CALCIUM 8.4 MG/DL (8.5-10.1); CHLORIDE 96 MMOL/L (99-107); CREATININE 1.84 MG/DL (0.60-1.10); GLUCOSE 157 MG/DL (70-104); MAGNESIUM 1.8 MG/DL (1.5-2.4); POTASSIUM 4.9 MMOL/L (3.5-5.1); SODIUM 132 MMOL/L (135-145); TOTAL CARBON DIOXIDE 28.4 MMOL/L (24-32); eGFR 38 ML/MIN
[2018-10-18 06:00] VITALS: BP 98/65
[2018-10-18] MEDS: pantoprazole 40mg Tablet.DR PO SCH (07:30)
[2018-10-18] MEDS: gabapentin 100mg capsule PO SCH ×4 (08:00→20:26)
[2018-10-18] MEDS: lisinopril 5mg tablet PO SCH (08:00)
[2018-10-18] MEDS: K and/or MAG REPLACEMENT MC SCH (08:00)
[2018-10-18] MEDS: potassium Cl 20 mEq SR tablet PO SCH ×2 (08:00→20:00)
[2018-10-18] MEDS: metoprolol tartrate 25mg tablet PO SCH ×2 (08:00→20:26)
[2018-10-18] MEDS: atorvastatin 10mg tablet PO SCH (08:44)
[2018-10-18] MEDS: docusate sod 100mg capsule PO SCH ×2 (08:44→20:24)
[2018-10-18] MEDS: magnesium Cl slow-release 64mg tablet PO SCH ×2 (08:44→20:26)
[2018-10-18] MEDS: lactobacillus rhamnosus 10,000 MMU CELLS/CAPSULE PO SCH ×2 (08:44→22:24)
[2018-10-18] MEDS: aspirin 81mg tablet.DR PO SCH (08:44)
[2018-10-18] MEDS: insulin Lispro (HumaLOG) vial - multi-dose SQ SCH ×2 (08:49→13:19)
[2018-10-18] MEDS: heparin 25,000 UNIT/250ml bag 250 ML IV SCH ×2 (09:02→21:36)
[2018-10-18 11:00] VITALS: BP 107/73
[2018-10-18] MEDS ORDERED: cefazolin/dext.iso 2gm/50ml 50 ML IV ONE (11:55)
[2018-10-18] MEDS: lactose-reduced food (Ensure High Protein) 237ml bottle PO SCH ×2 (13:08→18:00)
[2018-10-18 15:00] VITALS: BP 112/71
[2018-10-18 19:00] VITALS: BP 116/66
[2018-10-18] MEDS: insulin glargine (Lantus) pen - multi-dose SQ SCH (21:45)
[2018-10-18 23:00] VITALS: BP 113/65
[2018-10-19] VITALS (16 sets, daily range): BP systolic 91–135; BP diastolic 51–82
[2018-10-19] MEDS: morphine 4 MG/ML inj SYRINge IV PRN ×6 (01:33→22:19)
[2018-10-19] MEDS: oxyCODONE IR 5mg (immed. release) tablet PO PRN ×4 (02:57→20:27)
[2018-10-19 03:53] LABS: ALBUMIN 2.3 G/DL (3.4-5.0); ANION GAP 5 (8-16); BLOOD UREA NITROGEN 26 MG/DL (7-18); BUN/CREATININE RATIO 15.6 (5.4-32.0); CALCIUM 8.5 MG/DL (8.5-10.1); CHLORIDE 93 MMOL/L (99-107); CREATININE 1.67 MG/DL (0.60-1.10); GLUCOSE 141 MG/DL (70-104); MAGNESIUM 1.7 MG/DL (1.5-2.4); SODIUM 127 MMOL/L (135-145); TOTAL CARBON DIOXIDE 29.1 MMOL/L (24-32); eGFR 43 ML/MIN
[2018-10-19] MEDS ORDERED: cefazolin/dext.iso 2gm/50ml 50 ML IV ONE (05:30)
[2018-10-19] MEDS: pantoprazole 40mg Tablet.DR PO SCH (07:30)
[2018-10-19] MEDS: lactose-reduced food (Ensure High Protein) 237ml bottle PO SCH ×3 (08:00→18:00)
[2018-10-19] MEDS: K and/or MAG REPLACEMENT MC SCH (08:00)
[2018-10-19] MEDS: potassium Cl 20 mEq SR tablet PO SCH ×2 (08:00→19:33)
[2018-10-19] MEDS: aspirin 81mg tablet.DR PO SCH (08:13)
[2018-10-19] MEDS: lisinopril 5mg tablet PO SCH (08:14)
[2018-10-19] MEDS: lactobacillus rhamnosus 10,000 MMU CELLS/CAPSULE PO SCH ×2 (08:15→19:17)
[2018-10-19] MEDS: docusate sod 100mg capsule PO SCH ×2 (08:15→19:17)
[2018-10-19] MEDS: gabapentin 100mg capsule PO SCH ×3 (08:15→20:26)
[2018-10-19] MEDS: magnesium Cl slow-release 64mg tablet PO SCH ×2 (08:15→19:19)
[2018-10-19] MEDS: metoprolol tartrate 25mg tablet PO SCH ×2 (08:15→19:19)
[2018-10-19] MEDS: atorvastatin 10mg tablet PO SCH (08:16)
[2018-10-19] MEDS ORDERED: ondansetron/PF 4mg/2ml inj IV PRN (09:30)
[2018-10-19] MEDS ORDERED: morphine 4 MG/ML inj SYRINge IV PRN ×2 (09:30→17:45)
[2018-10-19] MEDS ORDERED: meperidine/PF 25mg/ml syringe IV PRN ×3 (09:30)
[2018-10-19] MEDS ORDERED: ringers solution, lacted 1,000 ML IV SCH (09:30)
[2018-10-19] MEDS ORDERED: proCHLORperazine 10 MG/2 ml inj IV PRN (09:30)
[2018-10-19] MEDS ORDERED: sevoflurane 250ml liquid IH ONE (09:37)
[2018-10-19] MEDS ORDERED: midazolam 2 mg/2 ml injection ONE (09:41)
[2018-10-19] MEDS ORDERED: fentaNYL/PF 50MCG/1 ML 2ML syringe ONE (09:41)
[2018-10-19] MEDS ORDERED: propofol inj 20 ML IV ONE (09:42)
[2018-10-19] MEDS ORDERED: LIDOcaine 2% (20mg/ml) 5ml vial ONE (09:42)
[2018-10-19 09:49] LABS: BASOPHILS # (AUTO) 0.1 X10'3 (0-0.2); BASOPHILS % (AUTO) 0.4 % (0-1); EOSINOPHILS # (AUTO) 0.3 X10'3 (0-0.9); LYMPHOCYTES # (AUTO) 1.8 X10'3 (1.1-4.8); MEAN CORPUSCULAR HEMOGLOBIN 30.4 PG (27.0-31.0); MEAN CORPUSCULAR HGB CONC 33.3 % (33.0-36.5); MEAN CORPUSCULAR VOLUME 91.1 FL (78-98); MEAN PLATELET VOLUME 7.4 FL (7.4-10.4); MONOCYTES # (AUTO) 1.5 X10'3 (0-0.9); MONOCYTES % (AUTO) 11.2 % (2-12); NEUTROPHILS # (AUTO) 9.4 X10'3 (1.8-7.7); NEUTROPHILS % (AUTO) 72.4 % (42-75); PRE OP HEMATOCRIT 27.7 % (42.0-52.0); PRE OP PLATELET COUNT 574 X10'3 (140-440); RED BLOOD COUNT 3.04 X10'6 (4.70-6.10); RED CELL DISTRIBUTION WIDTH 13.5 % (11.5-14.5)
[2018-10-19 09:52] LABS: PRE OP HEMOGLOBIN 9.2 g/dL (14.0-17.9)
[2018-10-19 13:04] LABS: PARTIAL THROMBOPLASTIN TIME 30 SECONDS (22-32)
[2018-10-19] MEDS: heparin 25,000 UNIT/250ml bag 250 ML IV SCH (18:00)
[2018-10-19] MEDS: insulin Lispro (HumaLOG) vial - multi-dose SQ SCH (19:16)
[2018-10-19] MEDS: insulin glargine (Lantus) pen - multi-dose SQ SCH (22:15)
[2018-10-20] MEDS: oxyCODONE IR 5mg (immed. release) tablet PO PRN ×5 (00:45→19:51)
[2018-10-20] MEDS: morphine 4 MG/ML inj SYRINge IV PRN ×5 (02:48→22:17)
[2018-10-20 03:00] VITALS: BP 115/55
[2018-10-20 06:08] LABS: ALBUMIN 2.2 G/DL (3.4-5.0); ANION GAP 8 (8-16); BLOOD UREA NITROGEN 29 MG/DL (7-18); BUN/CREATININE RATIO 16.5 (5.4-32.0); CHLORIDE 94 MMOL/L (99-107); CREATININE 1.76 MG/DL (0.60-1.10); GLUCOSE 109 MG/DL (70-104); MAGNESIUM 1.8 MG/DL (1.5-2.4); POTASSIUM 4.7 MMOL/L (3.5-5.1); SODIUM 128 MMOL/L (135-145); eGFR 40 ML/MIN
[2018-10-20 07:00] VITALS: BP 104/50
[2018-10-20] MEDS: gabapentin 100mg capsule PO SCH ×3 (07:58→19:50)
[2018-10-20] MEDS: potassium Cl 20 mEq SR tablet PO SCH ×2 (07:58→20:00)
[2018-10-20] MEDS: pantoprazole 40mg Tablet.DR PO SCH (07:58)
[2018-10-20] MEDS: docusate sod 100mg capsule PO SCH ×2 (07:58→19:50)
[2018-10-20] MEDS: aspirin 81mg tablet.DR PO SCH (07:58)
[2018-10-20] MEDS: atorvastatin 10mg tablet PO SCH (07:58)
[2018-10-20] MEDS: lactobacillus rhamnosus 10,000 MMU CELLS/CAPSULE PO SCH ×2 (07:58→19:50)
[2018-10-20] MEDS: metoprolol tartrate 25mg tablet PO SCH ×2 (08:00→19:50)
[2018-10-20] MEDS: K and/or MAG REPLACEMENT MC SCH (08:00)
[2018-10-20] MEDS: lactose-reduced food (Ensure High Protein) 237ml bottle PO SCH ×3 (08:00→13:26)
[2018-10-20] MEDS: lisinopril 5mg tablet PO SCH (08:00)
[2018-10-20] MEDS: magnesium Cl slow-release 64mg tablet PO SCH ×2 (08:00→19:50)
[2018-10-20] MEDS: insulin Lispro (HumaLOG) vial - multi-dose SQ SCH ×3 (08:11→19:19)
[2018-10-20] MEDS: heparin 25,000 UNIT/250ml bag 250 ML IV SCH ×2 (09:20→10:30)
[2018-10-20 11:00] VITALS: BP 111/56
[2018-10-20 15:00] VITALS: BP 100/55
[2018-10-20 18:00] VITALS: BP 118/60
[2018-10-20] MEDS: insulin glargine (Lantus) pen - multi-dose SQ SCH (21:07)
[2018-10-20 22:00] VITALS: BP 118/70
[2018-10-21] MEDS: heparin 25,000 UNIT/250ml bag 250 ML IV SCH ×2 (00:29→14:56)
[2018-10-21] MEDS: oxyCODONE IR 5mg (immed. release) tablet PO PRN ×5 (00:32→21:50)
[2018-10-21 02:00] VITALS: BP 113/56
[2018-10-21] MEDS: morphine 4 MG/ML inj SYRINge IV PRN ×5 (02:50→23:53)
[2018-10-21 06:00] VITALS: BP 105/56
[2018-10-21 06:32] LABS: ALBUMIN 2.2 G/DL (3.4-5.0); ANION GAP 7 (8-16); BLOOD UREA NITROGEN 27 MG/DL (7-18); BUN/CREATININE RATIO 15.3 (5.4-32.0); CALCIUM 8.4 MG/DL (8.5-10.1); CHLORIDE 95 MMOL/L (99-107); CREATININE 1.76 MG/DL (0.60-1.10); GLUCOSE 161 MG/DL (70-104); MAGNESIUM 1.9 MG/DL (1.5-2.4); POTASSIUM 4.7 MMOL/L (3.5-5.1); SODIUM 129 MMOL/L (135-145); TOTAL CARBON DIOXIDE 27.4 MMOL/L (24-32); eGFR 40 ML/MIN
[2018-10-21] MEDS: lisinopril 5mg tablet PO SCH (07:20)
[2018-10-21] MEDS: lactobacillus rhamnosus 10,000 MMU CELLS/CAPSULE PO SCH ×2 (07:20→21:49)
[2018-10-21] MEDS: atorvastatin 10mg tablet PO SCH (07:21)
[2018-10-21] MEDS: pantoprazole 40mg Tablet.DR PO SCH (07:21)
[2018-10-21] MEDS: gabapentin 100mg capsule PO SCH ×3 (07:21→21:49)
[2018-10-21] MEDS: metoprolol tartrate 25mg tablet PO SCH ×2 (07:22→20:00)
[2018-10-21] MEDS: docusate sod 100mg capsule PO SCH ×2 (07:22→21:46)
[2018-10-21] MEDS: magnesium Cl slow-release 64mg tablet PO SCH ×2 (07:23→21:46)
[2018-10-21] MEDS: aspirin 81mg tablet.DR PO SCH (07:23)
[2018-10-21] MEDS: lactose-reduced food (Ensure High Protein) 237ml bottle PO SCH ×3 (07:27→18:00)
[2018-10-21] MEDS: K and/or MAG REPLACEMENT MC SCH (07:30)
[2018-10-21] MEDS: potassium Cl 20 mEq SR tablet PO SCH ×2 (07:30→20:00)
[2018-10-21] MEDS: insulin Lispro (HumaLOG) vial - multi-dose SQ SCH ×3 (09:31→19:16)
[2018-10-21 11:00] VITALS: BP 99/52
[2018-10-21 18:00] VITALS: BP 109/61
[2018-10-21] MEDS ORDERED: warfarin 5mg tablet PO ONE (21:00)
[2018-10-21] MEDS: insulin glargine (Lantus) pen - multi-dose SQ SCH (21:52)
[2018-10-21 22:00] VITALS: BP 99/66
[2018-10-22] VITALS (10 sets, daily range): BP systolic 11–119; BP diastolic 43–69
[2018-10-22] MEDS: heparin 25,000 UNIT/250ml bag 250 ML IV SCH ×3 (05:36→21:36)
[2018-10-22] MEDS: oxyCODONE IR 5mg (immed. release) tablet PO PRN ×5 (05:37→21:58)
[2018-10-22 05:40] LABS: PROTHROMBIN TIME 10.1 SECONDS (9.0-12.0)
[2018-10-22 05:57] LABS: ALBUMIN 2.1 G/DL (3.4-5.0); ANION GAP 9 (8-16); BLOOD UREA NITROGEN 31 MG/DL (7-18); CALCIUM 8.3 MG/DL (8.5-10.1); CHLORIDE 95 MMOL/L (99-107); CREATININE 1.82 MG/DL (0.60-1.10); GLUCOSE 167 MG/DL (70-104); SODIUM 128 MMOL/L (135-145); TOTAL CARBON DIOXIDE 24.3 MMOL/L (24-32); eGFR 39 ML/MIN
[2018-10-22 06:00] LABS: POTASSIUM 5.5 MMOL/L (3.5-5.1)
[2018-10-22] MEDS: lactobacillus rhamnosus 10,000 MMU CELLS/CAPSULE PO SCH ×2 (07:53→21:20)
[2018-10-22] MEDS: lisinopril 5mg tablet PO SCH (07:53)
[2018-10-22] MEDS: docusate sod 100mg capsule PO SCH ×2 (07:53→21:19)
[2018-10-22] MEDS: pantoprazole 40mg Tablet.DR PO SCH (07:53)
[2018-10-22] MEDS: atorvastatin 10mg tablet PO SCH (07:53)
[2018-10-22] MEDS: gabapentin 100mg capsule PO SCH (07:53)
[2018-10-22] MEDS: aspirin 81mg tablet.DR PO SCH (07:54)
[2018-10-22] MEDS: metoprolol tartrate 25mg tablet PO SCH ×2 (07:57→20:00)
[2018-10-22] MEDS: potassium Cl 20 mEq SR tablet PO SCH ×2 (08:00→20:00)
[2018-10-22] MEDS: magnesium Cl slow-release 64mg tablet PO SCH ×2 (08:00→20:00)
[2018-10-22] MEDS: insulin Lispro (HumaLOG) vial - multi-dose SQ SCH ×3 (08:03→17:57)
[2018-10-22] MEDS: lactose-reduced food (Ensure High Protein) 237ml bottle PO SCH ×3 (08:05→17:58)
[2018-10-22] MEDS: morphine 4 MG/ML inj SYRINge IV PRN (08:13)
[2018-10-22] MEDS: K and/or MAG REPLACEMENT MC SCH (08:30)
[2018-10-22] MEDS: heparin 10,000 units/1 ML INJ IV PRN ×2 (13:41→21:37)
[2018-10-22] MEDS ORDERED: warfarin 7.5mg tablet PO ONE (21:00)
[2018-10-22] MEDS: gabapentin 300mg capsule PO SCH (21:18)
[2018-10-22] MEDS: insulin glargine (Lantus) pen - multi-dose SQ SCH (22:35)
[2018-10-23] MEDS: oxyCODONE IR 5mg (immed. release) tablet PO PRN ×4 (03:24→17:16)
[2018-10-23 04:08] LABS: BASOPHILS # (AUTO) 0.1 X10'3 (0-0.2); BASOPHILS % (AUTO) 0.6 % (0-1); EOSINOPHILS # (AUTO) 0.2 X10'3 (0-0.9); EOSINOPHILS % (AUTO) 2.2 % (0-6); HEMATOCRIT 25.2 % (42.0-52.0); HEMOGLOBIN 8.3 g/dl (14.0-17.9); LYMPHOCYTES # (AUTO) 1.8 X10'3 (1.1-4.8); LYMPHOCYTES % (AUTO) 18.2 % (21-51); MEAN CORPUSCULAR HEMOGLOBIN 30.1 PG (27.0-31.0); MEAN CORPUSCULAR HGB CONC 32.9 % (33.0-36.5); MEAN CORPUSCULAR VOLUME 91.7 FL (78-98); MEAN PLATELET VOLUME 7.7 FL (7.4-10.4); MONOCYTES # (AUTO) 0.9 X10'3 (0-0.9); MONOCYTES % (AUTO) 9.2 % (2-12); NEUTROPHILS # (AUTO) 7.1 X10'3 (1.8-7.7); NEUTROPHILS % (AUTO) 69.8 % (42-75); PLATELET COUNT 519 X10'3 (140-440); RED BLOOD COUNT 2.75 X10'6 (4.70-6.10); RED CELL DISTRIBUTION WIDTH 13.9 % (11.5-14.5); WHITE BLOOD COUNT 10.2 X10'3 (4.5-11.0)
[2018-10-23 04:17] LABS: PROTHROMBIN TIME 10.3 SECONDS (9.0-12.0)
[2018-10-23] MEDS: heparin 25,000 UNIT/250ml bag 250 ML IV SCH (04:42)
[2018-10-23 07:00] VITALS: BP 101/59
[2018-10-23] MEDS: atorvastatin 10mg tablet PO SCH (07:48)
[2018-10-23] MEDS: lactobacillus rhamnosus 10,000 MMU CELLS/CAPSULE PO SCH ×2 (07:48→19:43)
[2018-10-23] MEDS: pantoprazole 40mg Tablet.DR PO SCH (07:48)
[2018-10-23] MEDS: aspirin 81mg tablet.DR PO SCH (07:48)
[2018-10-23] MEDS: gabapentin 300mg capsule PO SCH ×2 (07:48→19:43)
[2018-10-23] MEDS: metoprolol tartrate 25mg tablet PO SCH ×2 (07:50→19:45)
[2018-10-23] MEDS: docusate sod 100mg capsule PO SCH ×2 (07:51→19:43)
[2018-10-23] MEDS: lisinopril 5mg tablet PO SCH (07:51)
[2018-10-23] MEDS: insulin Lispro (HumaLOG) vial - multi-dose SQ SCH ×3 (07:56→19:42)
[2018-10-23] MEDS: potassium Cl 20 mEq SR tablet PO SCH ×2 (08:00→19:44)
[2018-10-23] MEDS: magnesium Cl slow-release 64mg tablet PO SCH ×2 (08:00→19:43)
[2018-10-23] MEDS: K and/or MAG REPLACEMENT MC SCH (08:00)
[2018-10-23] MEDS: lactose-reduced food (Ensure High Protein) 237ml bottle PO SCH ×3 (08:07→18:04)
[2018-10-23] MEDS: morphine 4 MG/ML inj SYRINge IV PRN ×3 (10:21→21:32)
[2018-10-23 11:00] VITALS: BP 95/50
[2018-10-23 11:04] LABS: ALBUMIN 2.5 G/DL (3.4-5.0); ANION GAP 8 (8-16); BLOOD UREA NITROGEN 30 MG/DL (7-18); BUN/CREATININE RATIO 17.4 (5.4-32.0); CALCIUM 8.7 MG/DL (8.5-10.1); CHLORIDE 93 MMOL/L (99-107); CREATININE 1.72 MG/DL (0.60-1.10); GLUCOSE 280 MG/DL (70-104); POTASSIUM 4.8 MMOL/L (3.5-5.1); SODIUM 128 MMOL/L (135-145); TOTAL CARBON DIOXIDE 27.2 MMOL/L (24-32); eGFR 41 ML/MIN
[2018-10-23 15:00] VITALS: BP 97/58
[2018-10-23 19:00] VITALS: BP 94/58
[2018-10-23] MEDS ORDERED: warfarin 10mg tablet PO ONE (21:00)
[2018-10-23] MEDS: insulin glargine (Lantus) pen - multi-dose SQ SCH (21:27)
[2018-10-23 23:00] VITALS: BP 97/62
[2018-10-24] MEDS: heparin 25,000 UNIT/250ml bag 250 ML IV SCH ×3 (00:14→14:30)
[2018-10-24] MEDS: oxyCODONE IR 5mg (immed. release) tablet PO PRN ×5 (02:30→20:01)
[2018-10-24 03:00] VITALS: BP 98/59
[2018-10-24] MEDS: morphine 4 MG/ML inj SYRINge IV PRN ×4 (04:06→22:21)
[2018-10-24 04:29] LABS: INR 1.1 INR; PROTHROMBIN TIME 10.7 SECONDS (9.0-12.0)
[2018-10-24] MEDS: heparin 10,000 units/1 ML INJ IV PRN (04:49)
[2018-10-24 07:00] VITALS: BP 99/66
[2018-10-24] MEDS: pantoprazole 40mg Tablet.DR PO SCH (07:14)
[2018-10-24] MEDS: lactobacillus rhamnosus 10,000 MMU CELLS/CAPSULE PO SCH ×2 (07:14→20:03)
[2018-10-24] MEDS: aspirin 81mg tablet.DR PO SCH (07:14)
[2018-10-24] MEDS: gabapentin 300mg capsule PO SCH ×2 (07:14→20:04)
[2018-10-24] MEDS: docusate sod 100mg capsule PO SCH ×2 (07:14→20:05)
[2018-10-24] MEDS: atorvastatin 10mg tablet PO SCH (07:14)
[2018-10-24 07:21] LABS: BASOPHILS % (AUTO) 0.5 % (0-1); EOSINOPHILS # (AUTO) 0.2 X10'3 (0-0.9); EOSINOPHILS % (AUTO) 2.3 % (0-6); HEMATOCRIT 25.1 % (42.0-52.0); HEMOGLOBIN 8.2 g/dl (14.0-17.9); LYMPHOCYTES # (AUTO) 1.8 X10'3 (1.1-4.8); MEAN CORPUSCULAR HEMOGLOBIN 29.6 PG (27.0-31.0); MEAN CORPUSCULAR HGB CONC 32.7 % (33.0-36.5); MEAN CORPUSCULAR VOLUME 90.7 FL (78-98); MEAN PLATELET VOLUME 7.5 FL (7.4-10.4); NEUTROPHILS # (AUTO) 5.9 X10'3 (1.8-7.7); NEUTROPHILS % (AUTO) 66.2 % (42-75); PLATELET COUNT 517 X10'3 (140-440); RED BLOOD COUNT 2.76 X10'6 (4.70-6.10); RED CELL DISTRIBUTION WIDTH 13.9 % (11.5-14.5); WHITE BLOOD COUNT 8.9 X10'3 (4.5-11.0)
[2018-10-24 07:40] LABS: ALBUMIN 2.4 G/DL (3.4-5.0); ANION GAP 8 (8-16); BLOOD UREA NITROGEN 34 MG/DL (7-18); BUN/CREATININE RATIO 20.1 (5.4-32.0); CALCIUM 8.8 MG/DL (8.5-10.1); CHLORIDE 96 MMOL/L (99-107); CREATININE 1.69 MG/DL (0.60-1.10); GLUCOSE 131 MG/DL (70-104); POTASSIUM 4.8 MMOL/L (3.5-5.1); SODIUM 130 MMOL/L (135-145); TOTAL CARBON DIOXIDE 25.8 MMOL/L (24-32); eGFR 42 ML/MIN
[2018-10-24] MEDS: metoprolol tartrate 25mg tablet PO SCH ×2 (07:54→20:05)
[2018-10-24] MEDS: potassium Cl 20 mEq SR tablet PO SCH ×2 (07:54→20:00)
[2018-10-24] MEDS: lisinopril 5mg tablet PO SCH (07:55)
[2018-10-24] MEDS: lactose-reduced food (Ensure High Protein) 237ml bottle PO SCH ×3 (07:55→18:00)
[2018-10-24] MEDS: K and/or MAG REPLACEMENT MC SCH (08:00)
[2018-10-24 08:10] LABS: MAGNESIUM 1.9 MG/DL (1.5-2.4)
[2018-10-24] MEDS: magnesium Cl slow-release 64mg tablet PO SCH ×2 (08:35→20:03)
[2018-10-24] MEDS: insulin Lispro (HumaLOG) vial - multi-dose SQ SCH ×3 (08:38→20:22)
[2018-10-24 11:00] VITALS: BP 104/64
[2018-10-24 15:00] VITALS: BP 107/56
[2018-10-24 19:00] VITALS: BP 110/66
[2018-10-24] MEDS ORDERED: warfarin 4mg tablet PO ONE (21:00)
[2018-10-24] MEDS: insulin glargine (Lantus) pen - multi-dose SQ SCH (22:34)
[2018-10-24 23:00] VITALS: BP 100/62
[2018-10-25] MEDS: oxyCODONE IR 5mg (immed. release) tablet PO PRN ×4 (02:20→20:55)
[2018-10-25 02:46] LABS: INR 1.2 INR; PROTHROMBIN TIME 11.8 SECONDS (9.0-12.0)
[2018-10-25 03:00] VITALS: BP 95/65
[2018-10-25] MEDS: morphine 4 MG/ML inj SYRINge IV PRN ×2 (05:53→22:00)
[2018-10-25] MEDS: heparin 25,000 UNIT/250ml bag 250 ML IV SCH ×5 (06:04→21:45)
[2018-10-25 07:00] VITALS: BP 101/70
[2018-10-25] MEDS: lactobacillus rhamnosus 10,000 MMU CELLS/CAPSULE PO SCH ×2 (07:17→20:52)
[2018-10-25] MEDS: lisinopril 5mg tablet PO SCH (07:17)
[2018-10-25] MEDS: aspirin 81mg tablet.DR PO SCH (07:18)
[2018-10-25] MEDS: atorvastatin 10mg tablet PO SCH (07:18)
[2018-10-25] MEDS: gabapentin 300mg capsule PO SCH ×2 (07:18→20:53)
[2018-10-25] MEDS: docusate sod 100mg capsule PO SCH ×2 (07:18→20:51)
[2018-10-25] MEDS: pantoprazole 40mg Tablet.DR PO SCH (07:18)
[2018-10-25] MEDS: magnesium Cl slow-release 64mg tablet PO SCH ×2 (07:20→20:54)
[2018-10-25] MEDS: potassium Cl 20 mEq SR tablet PO SCH ×2 (07:21→20:00)
[2018-10-25] MEDS: lactose-reduced food (Ensure High Protein) 237ml bottle PO SCH ×3 (07:21→18:00)
[2018-10-25] MEDS: K and/or MAG REPLACEMENT MC SCH (08:00)
[2018-10-25] MEDS: metoprolol tartrate 25mg tablet PO SCH ×2 (08:00→20:53)
[2018-10-25] MEDS: insulin Lispro (HumaLOG) vial - multi-dose SQ SCH ×3 (10:01→21:51)
[2018-10-25 11:00] VITALS: BP 112/66
[2018-10-25 15:00] VITALS: BP 105/64
[2018-10-25 19:00] VITALS: BP 110/62
[2018-10-25] MEDS ORDERED: warfarin 7.5mg tablet PO ONE (21:00)
[2018-10-25] MEDS: heparin 10,000 units/1 ML INJ IV PRN (21:42)
[2018-10-25] MEDS: insulin glargine (Lantus) pen - multi-dose SQ SCH (21:49)
[2018-10-25 23:00] VITALS: BP 109/65
[2018-10-26] MEDS: oxyCODONE IR 5mg (immed. release) tablet PO PRN ×4 (01:55→21:42)
[2018-10-26 03:00] VITALS: BP 95/58
[2018-10-26 03:17] LABS: ALBUMIN 2.6 G/DL (3.4-5.0); ANION GAP 8 (8-16); BLOOD UREA NITROGEN 35 MG/DL (7-18); BUN/CREATININE RATIO 19.7 (5.4-32.0); CALCIUM 8.7 MG/DL (8.5-10.1); CHLORIDE 95 MMOL/L (99-107); CREATININE 1.78 MG/DL (0.60-1.10); GLUCOSE 143 MG/DL (70-104); POTASSIUM 4.7 MMOL/L (3.5-5.1); SODIUM 130 MMOL/L (135-145); TOTAL CARBON DIOXIDE 26.7 MMOL/L (24-32); eGFR 40 ML/MIN
[2018-10-26 03:19] LABS: BASOPHILS # (AUTO) 0.1 X10'3 (0-0.2); EOSINOPHILS # (AUTO) 0.1 X10'3 (0-0.9); EOSINOPHILS % (AUTO) 1.9 % (0-6); HEMOGLOBIN 8.5 g/dl (14.0-17.9); LYMPHOCYTES # (AUTO) 1.6 X10'3 (1.1-4.8); LYMPHOCYTES % (AUTO) 22.8 % (21-51); MEAN CORPUSCULAR HEMOGLOBIN 29.8 PG (27.0-31.0); MEAN CORPUSCULAR HGB CONC 32.9 % (33.0-36.5); MEAN CORPUSCULAR VOLUME 90.5 FL (78-98); MEAN PLATELET VOLUME 7.6 FL (7.4-10.4); MONOCYTES % (AUTO) 13.7 % (2-12); NEUTROPHILS # (AUTO) 4.4 X10'3 (1.8-7.7); NEUTROPHILS % (AUTO) 60.6 % (42-75); PLATELET COUNT 510 X10'3 (140-440); RED BLOOD COUNT 2.87 X10'6 (4.70-6.10); RED CELL DISTRIBUTION WIDTH 13.9 % (11.5-14.5); WHITE BLOOD COUNT 7.2 X10'3 (4.5-11.0)
[2018-10-26 03:28] LABS: INR 1.2 INR; PROTHROMBIN TIME 11.7 SECONDS (9.0-12.0)
[2018-10-26] MEDS: heparin 25,000 UNIT/250ml bag 250 ML IV SCH ×2 (03:43→12:04)
[2018-10-26] MEDS: morphine 4 MG/ML inj SYRINge IV PRN ×3 (06:46→19:00)
[2018-10-26] MEDS: pantoprazole 40mg Tablet.DR PO SCH (06:47)
[2018-10-26] MEDS: gabapentin 300mg capsule PO SCH ×2 (07:29→20:50)
[2018-10-26] MEDS: aspirin 81mg tablet.DR PO SCH (07:29)
[2018-10-26] MEDS: docusate sod 100mg capsule PO SCH ×2 (07:30→20:50)
[2018-10-26] MEDS: lactobacillus rhamnosus 10,000 MMU CELLS/CAPSULE PO SCH ×2 (07:30→20:50)
[2018-10-26] MEDS: atorvastatin 10mg tablet PO SCH (07:30)
[2018-10-26] MEDS: lactose-reduced food (Ensure High Protein) 237ml bottle PO SCH ×3 (07:33→17:37)
[2018-10-26 07:38] VITALS: BP 101/64
[2018-10-26] MEDS: potassium Cl 20 mEq SR tablet PO SCH ×2 (08:00→20:00)
[2018-10-26] MEDS: lisinopril 5mg tablet PO SCH (08:00)
[2018-10-26] MEDS: K and/or MAG REPLACEMENT MC SCH (08:00)
[2018-10-26] MEDS: metoprolol tartrate 25mg tablet PO SCH ×2 (08:00→20:50)
[2018-10-26] MEDS: insulin Lispro (HumaLOG) vial - multi-dose SQ SCH ×3 (08:34→18:57)
[2018-10-26] MEDS: magnesium Cl slow-release 64mg tablet PO SCH ×2 (09:49→20:51)
[2018-10-26 11:00] VITALS: BP 109/62
[2018-10-26 15:04] VITALS: BP 111/70
[2018-10-26 19:00] VITALS: BP 118/69
[2018-10-26] MEDS ORDERED: warfarin 10mg tablet PO ONE (21:00)
[2018-10-26] MEDS: insulin glargine (Lantus) pen - multi-dose SQ SCH (21:40)
[2018-10-26 23:00] VITALS: BP 106/66
[2018-10-27] MEDS: morphine 4 MG/ML inj SYRINge IV PRN ×4 (00:10→21:41)
[2018-10-27 03:00] VITALS: BP 97/63
[2018-10-27] MEDS: oxyCODONE IR 5mg (immed. release) tablet PO PRN ×4 (03:19→19:32)
[2018-10-27] MEDS: heparin 25,000 UNIT/250ml bag 250 ML IV SCH ×2 (03:27→16:07)
[2018-10-27 04:26] LABS: INR 1.2 INR; PROTHROMBIN TIME 12.1 SECONDS (9.0-12.0)
[2018-10-27 06:00] VITALS: BP 106/73
[2018-10-27] MEDS: lisinopril 5mg tablet PO SCH ×2 (08:00→10:00)
[2018-10-27] MEDS: lactose-reduced food (Ensure High Protein) 237ml bottle PO SCH ×3 (08:00→18:43)
[2018-10-27] MEDS: metoprolol tartrate 25mg tablet PO SCH ×3 (08:00→19:31)
[2018-10-27] MEDS: K and/or MAG REPLACEMENT MC SCH (08:00)
[2018-10-27] MEDS: gabapentin 300mg capsule PO SCH ×2 (09:56→19:28)
[2018-10-27] MEDS: lactobacillus rhamnosus 10,000 MMU CELLS/CAPSULE PO SCH ×2 (09:59→19:27)
[2018-10-27] MEDS: docusate sod 100mg capsule PO SCH ×2 (09:59→19:28)
[2018-10-27] MEDS: potassium Cl 20 mEq SR tablet PO SCH ×2 (10:00→19:33)
[2018-10-27] MEDS: aspirin 81mg tablet.DR PO SCH (10:00)
[2018-10-27] MEDS: magnesium Cl slow-release 64mg tablet PO SCH ×2 (10:00→19:31)
[2018-10-27] MEDS: atorvastatin 10mg tablet PO SCH (10:00)
[2018-10-27] MEDS: pantoprazole 40mg Tablet.DR PO SCH (10:00)
[2018-10-27 11:00] VITALS: BP 107/80
[2018-10-27 11:42] LABS: BASOPHILS # (AUTO) 0.1 X10'3 (0-0.2); BASOPHILS % (AUTO) 1.2 % (0-1); EOSINOPHILS # (AUTO) 0.1 X10'3 (0-0.9); EOSINOPHILS % (AUTO) 1.5 % (0-6); HEMATOCRIT 28.2 % (42.0-52.0); HEMOGLOBIN 9.2 g/dl (14.0-17.9); LYMPHOCYTES % (AUTO) 23.5 % (21-51); MEAN CORPUSCULAR HEMOGLOBIN 29.7 PG (27.0-31.0); MEAN CORPUSCULAR HGB CONC 32.5 % (33.0-36.5); MEAN CORPUSCULAR VOLUME 91.3 FL (78-98); MEAN PLATELET VOLUME 8.5 FL (7.4-10.4); MONOCYTES # (AUTO) 0.8 X10'3 (0-0.9); MONOCYTES % (AUTO) 9.1 % (2-12); NEUTROPHILS # (AUTO) 5.4 X10'3 (1.8-7.7); NEUTROPHILS % (AUTO) 64.7 % (42-75); PLATELET COUNT 528 X10'3 (140-440); RED BLOOD COUNT 3.09 X10'6 (4.70-6.10); WHITE BLOOD COUNT 8.3 X10'3 (4.5-11.0)
[2018-10-27 13:19] LABS: ALBUMIN 2.6 G/DL (3.4-5.0); ANION GAP 10 (8-16); BLOOD UREA NITROGEN 32 MG/DL (7-18); BUN/CREATININE RATIO 19.9 (5.4-32.0); CALCIUM 8.8 MG/DL (8.5-10.1); CHLORIDE 95 MMOL/L (99-107); CREATININE 1.61 MG/DL (0.60-1.10); GLUCOSE 223 MG/DL (70-104); POTASSIUM 4.9 MMOL/L (3.5-5.1); SODIUM 130 MMOL/L (135-145); TOTAL CARBON DIOXIDE 25.5 MMOL/L (24-32); eGFR 45 ML/MIN
[2018-10-27] MEDS: insulin Lispro (HumaLOG) vial - multi-dose SQ SCH ×2 (13:56→19:43)
[2018-10-27 17:00] VITALS: BP 109/75
[2018-10-27 19:00] VITALS: BP 123/73
[2018-10-27] MEDS: insulin glargine (Lantus) pen - multi-dose SQ SCH (21:00)
[2018-10-27] MEDS ORDERED: warfarin 10mg tablet PO ONE (21:00)
[2018-10-27 23:00] VITALS: BP 112/71
[2018-10-28 00:58] LABS: INR 1.5 INR; PROTHROMBIN TIME 14.9 SECONDS (9.0-12.0)
[2018-10-28] MEDS: heparin 25,000 UNIT/250ml bag 250 ML IV SCH ×3 (02:10→20:33)
[2018-10-28] MEDS: oxyCODONE IR 5mg (immed. release) tablet PO PRN ×2 (04:09→11:40)
[2018-10-28] MEDS: lactobacillus rhamnosus 10,000 MMU CELLS/CAPSULE PO SCH ×2 (07:43→19:24)
[2018-10-28] MEDS: atorvastatin 10mg tablet PO SCH (07:43)
[2018-10-28] MEDS: aspirin 81mg tablet.DR PO SCH (07:44)
[2018-10-28] MEDS: gabapentin 300mg capsule PO SCH ×2 (07:44→19:24)
[2018-10-28] MEDS: docusate sod 100mg capsule PO SCH ×2 (07:44→19:24)
[2018-10-28] MEDS: pantoprazole 40mg Tablet.DR PO SCH (07:44)
[2018-10-28] MEDS: magnesium Cl slow-release 64mg tablet PO SCH ×2 (07:45→20:30)
[2018-10-28] MEDS: morphine 4 MG/ML inj SYRINge IV PRN ×2 (07:50→19:34)
[2018-10-28 07:51] VITALS: BP 109/70
[2018-10-28] MEDS: lisinopril 5mg tablet PO SCH (07:53)
[2018-10-28] MEDS: metoprolol tartrate 25mg tablet PO SCH ×2 (07:53→19:25)
[2018-10-28] MEDS: K and/or MAG REPLACEMENT MC SCH (08:00)
[2018-10-28] MEDS: potassium Cl 20 mEq SR tablet PO SCH ×2 (08:00→19:25)
[2018-10-28] MEDS: lactose-reduced food (Ensure High Protein) 237ml bottle PO SCH ×3 (08:00→18:00)
[2018-10-28] MEDS: insulin Lispro (HumaLOG) vial - multi-dose SQ SCH ×2 (09:55→14:21)
[2018-10-28 11:00] VITALS: BP 112/69
[2018-10-28 11:56] LABS: BASOPHILS # (AUTO) 0.1 X10'3 (0-0.2); BASOPHILS % (AUTO) 0.9 % (0-1); EOSINOPHILS # (AUTO) 0.1 X10'3 (0-0.9); EOSINOPHILS % (AUTO) 1.5 % (0-6); HEMATOCRIT 28.7 % (42.0-52.0); HEMOGLOBIN 9.4 g/dl (14.0-17.9); LYMPHOCYTES # (AUTO) 1.8 X10'3 (1.1-4.8); LYMPHOCYTES % (AUTO) 24.4 % (21-51); MEAN CORPUSCULAR HEMOGLOBIN 29.4 PG (27.0-31.0); MEAN CORPUSCULAR HGB CONC 32.6 % (33.0-36.5); MEAN CORPUSCULAR VOLUME 90.2 FL (78-98); MEAN PLATELET VOLUME 8.3 FL (7.4-10.4); MONOCYTES # (AUTO) 0.7 X10'3 (0-0.9); NEUTROPHILS # (AUTO) 4.8 X10'3 (1.8-7.7); NEUTROPHILS % (AUTO) 64.2 % (42-75); PLATELET COUNT 527 X10'3 (140-440); RED BLOOD COUNT 3.18 X10'6 (4.70-6.10); RED CELL DISTRIBUTION WIDTH 14.3 % (11.5-14.5); WHITE BLOOD COUNT 7.5 X10'3 (4.5-11.0)
[2018-10-28 12:03] LABS: ALBUMIN 2.8 G/DL (3.4-5.0); ANION GAP 8 (8-16); BLOOD UREA NITROGEN 34 MG/DL (7-18); BUN/CREATININE RATIO 20.9 (5.4-32.0); CALCIUM 8.9 MG/DL (8.5-10.1); CHLORIDE 97 MMOL/L (99-107); CREATININE 1.63 MG/DL (0.60-1.10); GLUCOSE 205 MG/DL (70-104); POTASSIUM 4.3 MMOL/L (3.5-5.1); SODIUM 130 MMOL/L (135-145); eGFR 44 ML/MIN
[2018-10-28 15:00] VITALS: BP 86/51
[2018-10-28] MEDS ORDERED: morphine 2 MG/ML inj. syringe IV PRN (15:15)
[2018-10-28 18:00] VITALS: BP 116/60
[2018-10-28] MEDS ORDERED: warfarin 4mg tablet PO ONE (21:00)
[2018-10-28] MEDS: insulin glargine (Lantus) pen - multi-dose SQ SCH (21:46)
[2018-10-29] MEDS: morphine 4 MG/ML inj SYRINge IV PRN ×3 (01:19→09:43)
[2018-10-29] MEDS: heparin 25,000 UNIT/250ml bag 250 ML IV SCH ×2 (01:24→03:10)
[2018-10-29 02:56] LABS: INR 1.7 INR; PROTHROMBIN TIME 17.2 SECONDS (9.0-12.0)
[2018-10-29 07:00] VITALS: BP 93/58
[2018-10-29] MEDS: potassium Cl 20 mEq SR tablet PO SCH (08:00)
[2018-10-29] MEDS: docusate sod 100mg capsule PO SCH (08:21)
[2018-10-29] MEDS: aspirin 81mg tablet.DR PO SCH (08:21)
[2018-10-29] MEDS: pantoprazole 40mg Tablet.DR PO SCH (08:22)
[2018-10-29] MEDS: gabapentin 300mg capsule PO SCH (08:22)
[2018-10-29] MEDS: lactobacillus rhamnosus 10,000 MMU CELLS/CAPSULE PO SCH (08:22)
[2018-10-29] MEDS: atorvastatin 10mg tablet PO SCH (08:22)
[2018-10-29] MEDS: lisinopril 5mg tablet PO SCH (08:22)
[2018-10-29 08:24] VITALS: BP 104/53
[2018-10-29 08:28] VITALS: BP_SYST 104
[2018-10-29] MEDS: lactose-reduced food (Ensure High Protein) 237ml bottle PO SCH (08:28)
[2018-10-29] MEDS: metoprolol tartrate 25mg tablet PO SCH (08:28)
[2018-10-29] MEDS: magnesium Cl slow-release 64mg tablet PO SCH (08:29)
[2018-10-29] MEDS ORDERED: LANTUS SQ (09:12)
[2018-10-29] MEDS ORDERED: HYDR-4383 PO (09:12)
[2018-10-29] MEDS ORDERED: ATOR10TA PO (09:12)
[2018-10-29] MEDS ORDERED: LISI-642 PO (09:12)
[2018-10-29] MEDS ORDERED: ASPI-1071 PO (09:12)
[2018-10-29] MEDS ORDERED: COU5T PO (09:16)
[2018-10-29] MEDS: insulin Lispro (HumaLOG) vial - multi-dose SQ SCH (09:49)
[2018-10-29 10:10] LABS: BASOPHILS # (AUTO) 0.2 X10'3 (0-0.2); BASOPHILS % (AUTO) 2.1 % (0-1); EOSINOPHILS # (AUTO) 0.1 X10'3 (0-0.9); EOSINOPHILS % (AUTO) 1.1 % (0-6); HEMATOCRIT 27.3 % (42.0-52.0); HEMOGLOBIN 8.9 g/dl (14.0-17.9); LYMPHOCYTES # (AUTO) 1.8 X10'3 (1.1-4.8); LYMPHOCYTES % (AUTO) 21.1 % (21-51); MEAN CORPUSCULAR HEMOGLOBIN 29.3 PG (27.0-31.0); MEAN CORPUSCULAR HGB CONC 32.7 % (33.0-36.5); MEAN CORPUSCULAR VOLUME 89.7 FL (78-98); MEAN PLATELET VOLUME 7.9 FL (7.4-10.4); MONOCYTES # (AUTO) 0.6 X10'3 (0-0.9); MONOCYTES % (AUTO) 7.5 % (2-12); NEUTROPHILS # (AUTO) 5.6 X10'3 (1.8-7.7); NEUTROPHILS % (AUTO) 68.2 % (42-75); PLATELET COUNT 511 X10'3 (140-440); RED BLOOD COUNT 3.04 X10'6 (4.70-6.10); RED CELL DISTRIBUTION WIDTH 13.8 % (11.5-14.5); WHITE BLOOD COUNT 8.3 X10'3 (4.5-11.0)
[2018-10-29] MEDS ORDERED: enoxaparin 100mg/ml syringe SUBCUT SCH (10:14)
[2018-10-29 10:19] LABS: ALBUMIN 2.6 G/DL (3.4-5.0); ANION GAP 8 (8-16); BLOOD UREA NITROGEN 38 MG/DL (7-18); BUN/CREATININE RATIO 24.1 (5.4-32.0); CALCIUM 8.6 MG/DL (8.5-10.1); CHLORIDE 96 MMOL/L (99-107); CREATININE 1.58 MG/DL (0.60-1.10); GLUCOSE 277 MG/DL (70-104); SODIUM 129 MMOL/L (135-145); TOTAL CARBON DIOXIDE 24.9 MMOL/L (24-32); eGFR 46 ML/MIN
[2018-10-29] MEDS ORDERED: ENOX100D5 SUBCUT (11:17)
[2018-10-29] MEDS ORDERED: FERR324T4 PO (14:25)
== END 2018-10-29 12:12 | disposition home or self-care (01) | DRG 950 ==
LOC: ER 13:20 → ED HOLD 15:40 → ORTHO 4S 17:55 → PCU 3S 10-09 10:25 → PACU 10-10 07:01 → ICU 2S 10-10 11:36 → UNDODISIN 10-10 17:45 → PCU 3S 10-15 08:40
PROVIDERS: ADMIT Hospitalist; ATTEND Thoracic Surgery (Cardiothoracic Vascular Surgery)
PROC: 02100Z9 Bypass Coronary Artery, One Artery from Left Internal Mammary, Open Approach (ICD-10-PCS; 2018-10-10)
PROC: 4A023N7 Measurement of Cardiac Sampling and Pressure, Left Heart, Percutaneous Approach (ICD-10-PCS; 2018-10-10)
PROC: B2111ZZ Fluoroscopy of Multiple Coronary Arteries using Low Osmolar Contrast (ICD-10-PCS; 2018-10-10)
PROC: 021109W Bypass Coronary Artery, Two Arteries from Aorta with Autologous Venous Tissue, Open Approach (ICD-10-PCS; 2018-10-10)
PROC: 06BQ4ZZ Excision of Left Saphenous Vein, Percutaneous Endoscopic Approach (ICD-10-PCS; 2018-10-10)
PROC: 5A1221Z Performance of Cardiac Output, Continuous (ICD-10-PCS; 2018-10-10)
PROC: B24BZZ4 Ultrasonography of Heart with Aorta, Transesophageal (ICD-10-PCS; 2018-10-10)
PROC: 02B Heart and Great Vessels, Excision (ICD-10-PCS; 2018-10-10)
PROC: 02HV33Z Insertion of Infusion Device into Superior Vena Cava, Percutaneous Approach (ICD-10-PCS; 2018-10-10)
PROC: 04CU0ZZ Extirpation of Matter from Left Peroneal Artery, Open Approach (ICD-10-PCS; 2018-10-12)
PROC: 0KNT0ZZ Release Left Lower Leg Muscle, Open Approach (ICD-10-PCS; 2018-10-12)
PROC: 0KNT0ZZ Release Left Lower Leg Muscle, Open Approach (ICD-10-PCS; 2018-10-12)
PROC: 0KNT0ZZ Release Left Lower Leg Muscle, Open Approach (ICD-10-PCS; 2018-10-12)
PROC: 0KNT0ZZ Release Left Lower Leg Muscle, Open Approach (ICD-10-PCS; 2018-10-12)
PROC: 04CN0ZZ Extirpation of Matter from Left Popliteal Artery, Open Approach (ICD-10-PCS; principal; 2018-10-12 13:55)
PROC: 30233N1 Transfusion of Nonautologous Red Blood Cells into Peripheral Vein, Percutaneous Approach (ICD-10-PCS; 2018-10-13)
PROC: 0HQLXZZ Repair Left Lower Leg Skin, External Approach (ICD-10-PCS; 2018-10-20)
DX: I63.40 Cerebral infarction due to embolism of unspecified cerebral artery (principal); I21.9 Acute myocardial infarction, unspecified; N17.9 Acute kidney failure, unspecified; E11.65 Type 2 diabetes mellitus with hyperglycemia; I51.3 Intracardiac thrombosis, not elsewhere classified; D62 Acute posthemorrhagic anemia; N28.0 Ischemia and infarction of kidney; T79.A0XA Compartment syndrome, unspecified, initial encounter; I25.10 Atherosclerotic heart disease of native coronary artery without angina pectoris; I10 Essential (primary) hypertension; H53.2 Diplopia; E78.5 Hyperlipidemia, unspecified; B19.20 Unspecified viral hepatitis C without hepatic coma; F12.90 Cannabis use, unspecified, uncomplicated; I25.2 Old myocardial infarction
CPT/HCPCS: 0232T; 36415; 36600; 70450; 70498; 70544; 70547; 70551; 71045; 71046; 71260; 74177; 80048; 80053; 80061; 80305; 81001; 82330; 82378; 82435; 82803; 82947; 82948; 83036; 83735; 84100; 84132; 84295; 84443; 84484; 85018; 85025; 85347; 85384; 85610; 85651; 85730; 86885; 86900; 86901; 86920; 87070; 93005; 93306; 93312; 93325; 93458; 93880; 93926; 93971; 94002; 94010; 94668; 94760; 96374; 96375; 97110; 97116; 97162; 97530; 99152; 99153; 99285; A4620; A6223; A6255; A6257; A6258; A6402; A6446; A6449; A7000; A7048; C1751; C1757; C1758; C1769; C9113; G0378; J0330; J0690; J0780; J1100; J1200; J1644; J1650; J1815; J1940; J2001; J2060; J2150; J2175; J2250; J2270; J2370; J2405; J2440; J2704; J2720; J2765; J2930; J3010; J3370; J3475; J3480; J3490; J7030; J7060; J7070; J7120; P9016; P9045; P9047; Q2037; Q9967

== ENCOUNTER 2022-03-25 04:26 | Emergency (ER) | payer MEDICARE, MEDICAID ==
[~2022-03-25] VITALS: Ht 177.8 cm; Wt 81.8 kg
[~2022-03-25 04:26] MED LIST: ASPI-1071 PO; ATOR10TA PO; ENOX100D5 SUBCUT; FERR324T4 PO; GLYB2.5T4 PO; HYDR-4383 PO; LANTUS SQ; LISI-642 PO; LOP25T PO
[2022-03-25 06:16] VITALS: BP 131/92
[2022-03-25 06:54] LABS: BASOPHILS # (AUTO) 0.1 X10'3 (0-0.2); BASOPHILS % (AUTO) 0.5 % (0-1); EOSINOPHILS # (AUTO) 0.1 X10'3 (0-0.9); EOSINOPHILS % (AUTO) 0.5 % (0-6); HEMATOCRIT 41.2 % (42.0-52.0); LYMPHOCYTES # (AUTO) 2.1 X10'3 (1.1-4.8); LYMPHOCYTES % (AUTO) 17.4 % (21-51); MEAN CORPUSCULAR HEMOGLOBIN 30.1 PG (27.0-31.0); MEAN CORPUSCULAR VOLUME 88.6 FL (78-98); MEAN PLATELET VOLUME 8.1 FL (7.4-10.4); MONOCYTES # (AUTO) 0.8 X10'3 (0-0.9); MONOCYTES % (AUTO) 7.1 % (2-12); NEUTROPHILS # (AUTO) 8.9 X10'3 (1.8-7.7); NEUTROPHILS % (AUTO) 74.5 % (42-75); PLATELET COUNT 230 X10'3 (140-440); RED BLOOD COUNT 4.65 X10'6 (4.70-6.10); RED CELL DISTRIBUTION WIDTH 12.7 % (11.5-14.5)
== END 2022-03-25 07:26 | disposition home or self-care (01) ==
LOC: ER 04:26
DX: K13.79 Other lesions of oral mucosa (principal); E11.9 Type 2 diabetes mellitus without complications; F12.90 Cannabis use, unspecified, uncomplicated; F15.90 Other stimulant use, unspecified, uncomplicated; Z86.73 Personal history of transient ischemic attack (TIA), and cerebral infarction without residual deficits; Z79.82 Long term (current) use of aspirin; Z79.4 Long term (current) use of insulin; Z79.899 Other long term (current) drug therapy
CPT/HCPCS: 36415; 85025; 85610; 99283

== ENCOUNTER 2022-11-25 09:21 | Emergency (ER) | payer MEDICARE, MEDICAID ==
[~2022-11-25] VITALS: Ht 177.8 cm; Wt 78.6 kg
[2022-11-25] MEDS ORDERED: HYDROcodone/acetaminophen 10/325mg tab PO ONE (16:25)
[2022-11-25 17:17] VITALS: BP 157/100
[2022-11-25] MEDS ORDERED: PRAS10TA6 PO (18:02)
[2022-11-25] MEDS ORDERED: SULF1TAB49 PO (18:02)
[2022-11-25] MEDS ORDERED: ASPI-12 PO (18:07)
[2022-11-25 18:08] LABS: APTT 46 SECONDS (22-32)
== END 2022-11-25 18:35 | disposition home or self-care (01) ==
LOC: ER 09:21
DX: S91.101D Unspecified open wound of right great toe without damage to nail, subsequent encounter (principal); I73.9 Peripheral vascular disease, unspecified; E11.9 Type 2 diabetes mellitus without complications; F12.90 Cannabis use, unspecified, uncomplicated; F15.20 Other stimulant dependence, uncomplicated; X58.XXXD Exposure to other specified factors, subsequent encounter
CPT/HCPCS: 36415; 85610; 85651; 85730; 86140; 93005; 93922; 93925; 99285

== ENCOUNTER 2023-02-26 11:29 | Day surgery (SDC) | payer MEDICARE, MEDICAID ==
[2023-02-22 10:53] LABS: BASOPHILS % (AUTO) 0.3 % (0-1); EOSINOPHILS % (AUTO) 0.4 % (0-6); LYMPHOCYTES # (AUTO) 1.9 X10'3 (1.1-4.8); LYMPHOCYTES % (AUTO) 17.9 % (21-51); MEAN CORPUSCULAR HEMOGLOBIN 30.5 PG (27.0-31.0); MEAN CORPUSCULAR HGB CONC 34.6 g/dL (33.0-36.5); MEAN CORPUSCULAR VOLUME 88.1 FL (78-98); MONOCYTES # (AUTO) 0.4 X10'3 (0-0.9); MONOCYTES % (AUTO) 3.6 % (2-12); NEUTROPHILS # (AUTO) 8.3 X10'3 (1.8-7.7); NEUTROPHILS % (AUTO) 77.8 % (42-75); PRE OP HEMATOCRIT 47.9 % (42.0-52.0); PRE OP HEMOGLOBIN 16.6 g/dL (14.0-17.9); PRE OP PLATELET COUNT 291 X10'3 (140-440); RED BLOOD COUNT 5.44 X10'6 (4.70-6.10)
[2023-02-22 11:13] LABS: ALBUMIN 4.1 G/DL (3.4-5.0); ALBUMIN/GLOBULIN RATIO 0.8 (1.1-1.5); ALKALINE PHOSPHATASE 63 IU/L (46-116); BLOOD UREA NITROGEN 19 MG/DL (7-18); BUN/CREATININE RATIO 15.4 (10.0-20.0); CALCIUM 9.8 MG/DL (8.5-10.1); CHLORIDE 95 MMOL/L (99-107); CREATININE 1.23 MG/DL (0.60-1.10); PRE OP ALT 36 U/L (30-65); PRE OP ANION GAP 13 (8-16); PRE OP AST 24 U/L (10-37); PRE OP BILIRUB, TOTAL 0.5 MG/DL (0.0-1.0); PRE OP SODIUM 132 MMOL/L (135-145); TOTAL CARBON DIOXIDE 24.2 MMOL/L (24-32); TOTAL PROTEIN 9.4 G/DL (6.4-8.2); eGFR 60 ML/MIN
[2023-02-22 11:14] LABS: PRE OP POTASSIUM 4.6 MMOL/L (3.4-5.1)
[2023-02-22 11:15] LABS: PRE OP GLUCOSE 418 MG/DL (70-104)
[2023-02-22 12:25] LABS: HEMOGLOBIN A1C 10.9 % (4.5-6.2)
[2023-02-26] VITALS (8 sets, daily range): BP systolic 137–158; BP diastolic 74–117
[~2023-02-26] VITALS: Ht 177.8 cm; Wt 81.6 kg
[~2023-02-26 11:29] MED LIST changes: -ASPI-1071 PO; +ASPI-612 PO; -ATOR10TA PO; +ATOR20TA66 PO; +CARV3.12 PO; +DOCUMENT DATE & TIME OF BETA-BLOCKER PO ONE; +EMPA1TAB34 PO; -ENOX100D5 SUBCUT; -FERR324T4 PO; +GABA600T13 PO; -GLYB2.5T4 PO; +HYDR-3972 PO; -HYDR-4383 PO; +INSU100V9 SQ; -LANTUS SQ; -LISI-642 PO; -LOP25T PO; +WARF-55 PO; +cefazolin 2gm/D5W 100mL 100 ML IV ONE; +famotidine 20mg tablet PO ONE; +ringers solution, lacted 1,000 ML IV SCH
[2023-02-26] MEDS ORDERED: BUPIVAcaine/PF 2.5 mg/ml (0.25%) 30ml vial ONE (12:23)
[2023-02-26] MEDS ORDERED: sevoflurane 250ml liquid IH ONE (12:50)
[2023-02-26] MEDS ORDERED: LIDOcaine 2% (20mg/ml) 5ml vial ONE (12:50)
[2023-02-26] MEDS ORDERED: dexamethasone sod phosphate 4mg/ml inj. ONE (12:50)
[2023-02-26] MEDS ORDERED: fentaNYL/PF 50MCG/1 ML 2ML syringe ONE (12:53)
[2023-02-26] MEDS ORDERED: midazolam 1 mg/ML 2ml injection ONE (12:54)
[2023-02-26] MEDS ORDERED: ondansetron/PF 4mg/2ml inj ONE (12:58)
[2023-02-26] MEDS ORDERED: propofol inj 20 ML IV ONE (12:58)
[2023-02-26 13:08] LABS: PRE OP PROTIME 10.5 SECONDS (9.0-12.0)
[2023-02-26] MEDS ORDERED: labetalol 20mg/4ml (5mg/ml) syringe IV PRN (13:15)
[2023-02-26] MEDS ORDERED: ringers solution, lacted 1,000 ML IV SCH (13:15)
[2023-02-26] MEDS ORDERED: morphine 4 MG/ML inj SYRINge IV PRN (13:15)
[2023-02-26] MEDS ORDERED: fentaNYL/PF 50MCG/1 ML 2ML syringe IV PRN ×2 (13:15)
[2023-02-26] MEDS ORDERED: morphine 2 MG/ML inj. syringe IV PRN (13:15)
[2023-02-26] MEDS ORDERED: hydrALAZINE 20mg/ml inj. IV PRN (13:15)
[2023-02-26] MEDS ORDERED: ondansetron/PF 4mg/2ml inj IV PRN (13:15)
[2023-02-26] MEDS ORDERED: vancomycin 1,000mg inj ONE (13:16)
--- NOTE | 2023-02-26 13:35 | NUR ---
Received from OR via [facility] TO RECOVERY ROOM 6, accompanied by Anesthesiologist DR HORN and report given by Anesthesiolgist. PT PRESENT SWITH 20G LEFT AC, LR RUNNING 100MLS/HR, SPO2 100% 10L MASK, DRESSING ON RIGHT FOOT DEEPAK, VSS. Addendum: 02/26/23 at 1340 by Naa Coelho RN, RN Amended: Links added.
[2023-02-26] MEDS ORDERED: HYDROcodone/acetaminophen 10/325mg tab PO ONE (13:58)
--- NOTE | 2023-02-26 14:32 | NUR ---
ABLE TO SAFELY AMBULATE AND TRANSFER SELF. IV TAKEN OUT WITHOUT ANY COMPLICATIONS. ALL DISCHARGE INSTRUCTIONS COVERED WITH PATIENT AND ALL QUESTIONS ANSWERED. PATIENT TAKEN OUT VIA WHEELCHAIR TO PERSONAL VEHICLE WHERE FAMILY/FRIEND DROVE PATIENT HOME. Addendum: 02/26/23 at 1700 by Naa Coelho RN, RN Amended: Links added.
== END 2023-02-26 14:32 | disposition home or self-care (01) ==
LOC: PAS 11:29
PROVIDERS: ATTEND Orthopaedic Surgery Orthopaedic Trauma
DX: E11.52 Type 2 diabetes mellitus with diabetic peripheral angiopathy with gangrene (principal); I96 Gangrene, not elsewhere classified; I25.10 Atherosclerotic heart disease of native coronary artery without angina pectoris; I25.2 Old myocardial infarction; J44.9 Chronic obstructive pulmonary disease, unspecified; I12.9 Hypertensive chronic kidney disease with stage 1 through stage 4 chronic kidney disease, or unspecified chronic kidney disease; N18.30 Chronic kidney disease, stage 3 unspecified; Z98.890 Other specified postprocedural states; Z79.899 Other long term (current) drug therapy; Z86.73 Personal history of transient ischemic attack (TIA), and cerebral infarction without residual deficits
CPT/HCPCS: 28825; 36415; 80053; 82948; 83036; 85025; 85610; 85730; A6222; J0690; J1100; J2250; J2405; J2704; J3010; J3370; J3490; J7030; J7120; Z7506; Z7512; A4618; A6449; A7000

== ENCOUNTER → 2023-10-06 | Day surgery (SDC) | payer MEDICARE ==
[2023-10-06] VITALS (7 sets, daily range): BP systolic 114–141; BP diastolic 64–92; PULSE 78–98; RESP 11–16; TEMP 97; O2SAT 96–100
[~2023-10-06] VITALS: Ht 177.8 cm; Wt 81.6 kg
[~2023-10-06] MED LIST changes: +BUPIVAcaine/PF 2.5mg/ml (0.25%) 10ml vial IJ ONE; -HYDR-3972 PO; +INSU100I31 SQ; -INSU100V9 SQ; +LIDOcaine 2% (20mg/ml) 5ml vial ONE; +OXYC40TA PO; +desflurane 240ml liquid inh. IH ONE; +fentaNYL/PF 50MCG/1 ML 2ML syringe IV PRN; +fentaNYL/PF 50MCG/1 ML 2ML syringe ONE; +hydrALAZINE 20mg/ml inj. IV PRN; +insulin regular, human 10 units/0.1 ml syringe IV ONE; +labetalol 20mg/4ml (5mg/ml) syringe IV PRN; +midazolam 1 mg/ML 2ml injection ONE; +morphine 2 MG/ML inj. syringe IV PRN; +morphine 4 MG/ML inj SYRINge IV PRN; +ondansetron/PF 4mg/2ml inj IV PRN; +ondansetron/PF 4mg/2ml inj ONE; +propofol inj 20 ML IV ONE; +vancomycin 1,000mg inj ONE
--- NOTE | 2023-10-06 15:30 | NUR ---
ORDER RECEIVED FROM DR SCOTT TO ADMINISTER 6 UNITS HUMULIN INSULIN IV TO TREAT BLOOD SUGAR OF 339. ORDER PLACED AND AWAITING PHARMACY TO VERIFY.
--- NOTE | 2023-10-06 16:47 | NUR ---
Received from OR via , accompanied by Anesthesiologist SONIA and report given by Anesthesiolgist. VSS. IV INTACT 20G. ON MASK AT 10 LITERS. RIGHT FOOT HAS XEROFORM, 4X4'S, CURLING, AND CARL BANDAGE.CHECKED BS 240 DOCTOR AWARE. Addendum: 10/06/23 at 1734 by Elysia Pinzon RN Amended: Links added.
--- NOTE | 2023-10-06 18:01 | NUR ---
PATIENT MEETS DISCHARGE CRITERIA. VSS. IV DC'D WITH NO ISSUES. PATIENT EDUCATED ON DISCHARGE INSTRUCTIONS Addendum: 10/06/23 at 1836 by Elysia Pinzon RN Amended: Links added.
--- NOTE | 2023-10-06 18:07 | NUR ---
PATIENT MEETS DISCHARGE CRITERIA. VSS. IV DC'D WITH NO ISSUES. EDUCATED PATIENT ON DISCHARGE INSTRUCTIONS. WHEELED PATIENT TO 'S CAR. Addendum: 10/06/23 at 1846 by Elysia Pinzon RN Amended: Links added.
== END | disposition home or self-care (01) ==
LOC: PAS 12:55
PROVIDERS: ATTEND Orthopaedic Surgery Orthopaedic Trauma
DX: E11.69 Type 2 diabetes mellitus with other specified complication (principal); M86.8X7 Other osteomyelitis, ankle and foot; I25.10 Atherosclerotic heart disease of native coronary artery without angina pectoris; E78.5 Hyperlipidemia, unspecified; J44.9 Chronic obstructive pulmonary disease, unspecified; E11.42 Type 2 diabetes mellitus with diabetic polyneuropathy; M19.90 Unspecified osteoarthritis, unspecified site; E11.22 Type 2 diabetes mellitus with diabetic chronic kidney disease; I12.9 Hypertensive chronic kidney disease with stage 1 through stage 4 chronic kidney disease, or unspecified chronic kidney disease; N18.30 Chronic kidney disease, stage 3 unspecified; I25.2 Old myocardial infarction; Z95.1 Presence of aortocoronary bypass graft; Z98.890 Other specified postprocedural states; Z89.411 Acquired absence of right great toe; Z86.73 Personal history of transient ischemic attack (TIA), and cerebral infarction without residual deficits; Z86.19 Personal history of other infectious and parasitic diseases; Z79.82 Long term (current) use of aspirin; Z79.899 Other long term (current) drug therapy
CPT/HCPCS: 28820; 82948; A6222; J0690; J1815; J2250; J2405; J2704; J3010; J3370; J3490; J7030; J7120; Z7506; A4618; A6449; A7000

== ENCOUNTER 2023-11-23 11:27 | Emergency (ER) | payer MEDICARE, MEDICAID ==
[~2023-11-23] VITALS: Ht 177.8 cm; Wt 81.6 kg
[~2023-11-23 11:27] MED LIST changes: -BUPIVAcaine/PF 2.5mg/ml (0.25%) 10ml vial IJ ONE; -DOCUMENT DATE & TIME OF BETA-BLOCKER PO ONE; -LIDOcaine 2% (20mg/ml) 5ml vial ONE; -cefazolin 2gm/D5W 100mL 100 ML IV ONE; -desflurane 240ml liquid inh. IH ONE; -famotidine 20mg tablet PO ONE; -fentaNYL/PF 50MCG/1 ML 2ML syringe IV PRN; -fentaNYL/PF 50MCG/1 ML 2ML syringe ONE; -hydrALAZINE 20mg/ml inj. IV PRN; -insulin regular, human 10 units/0.1 ml syringe IV ONE; -labetalol 20mg/4ml (5mg/ml) syringe IV PRN; -midazolam 1 mg/ML 2ml injection ONE; -morphine 2 MG/ML inj. syringe IV PRN; -morphine 4 MG/ML inj SYRINge IV PRN; -ondansetron/PF 4mg/2ml inj IV PRN; -ondansetron/PF 4mg/2ml inj ONE; -propofol inj 20 ML IV ONE; -ringers solution, lacted 1,000 ML IV SCH; -vancomycin 1,000mg inj ONE
[2023-11-23 14:13] LABS: BASOPHILS % (AUTO) 0.3 % (0-1); EOSINOPHILS # (AUTO) 0.1 X10'3 (0-0.9); EOSINOPHILS % (AUTO) 0.6 % (0-6); HEMATOCRIT 42.4 % (42.0-52.0); HEMOGLOBIN 14.1 g/dl (14.0-17.9); LYMPHOCYTES # (AUTO) 2.7 X10'3 (1.1-4.8); MEAN CORPUSCULAR HEMOGLOBIN 29.5 PG (27.0-31.0); MEAN CORPUSCULAR HGB CONC 33.3 g/dL (33.0-36.5); MEAN CORPUSCULAR VOLUME 88.8 FL (78-98); MEAN PLATELET VOLUME 8.5 FL (7.4-10.4); MONOCYTES # (AUTO) 0.9 X10'3 (0-0.9); MONOCYTES % (AUTO) 6.7 % (2-12); NEUTROPHILS # (AUTO) 9.2 X10'3 (1.8-7.7); NEUTROPHILS % (AUTO) 71.4 % (42-75); PLATELET COUNT 225 X10'3 (140-440); RED BLOOD COUNT 4.77 X10'6 (4.70-6.10); RED CELL DISTRIBUTION WIDTH 13.4 % (11.5-14.5); WHITE BLOOD COUNT 12.8 X10'3 (4.5-11.0)
[2023-11-23 14:30] LABS: ALANINE AMINOTRANSFERASE 47 U/L (12-78); ALBUMIN 3.6 G/DL (3.4-5.0); ALBUMIN/GLOBULIN RATIO 0.8 (1.1-1.5); ALKALINE PHOSPHATASE 77 IU/L (46-116); ANION GAP 9 (8-16); ASPARTATE AMINO TRANSFERASE 20 U/L (10-37); BILIRUBIN,TOTAL 0.4 MG/DL (0.1-1.0); BLOOD UREA NITROGEN 19 MG/DL (7-18); BUN/CREATININE RATIO 14.5 (10.0-20.0); CALCIUM 8.9 MG/DL (8.5-10.1); CHLORIDE 98 MMOL/L (99-107); CREATININE 1.31 MG/DL (0.60-1.10); POTASSIUM 4.6 MMOL/L (3.5-5.1); SODIUM 133 MMOL/L (135-145); TOTAL CARBON DIOXIDE 25.6 MMOL/L (24-32); TOTAL PROTEIN 8.1 G/DL (6.4-8.2); eCRCL 61 ML/MIN; eGFR 56 ML/MIN
[2023-11-23 14:34] LABS: GLUCOSE 537 MG/DL (70-104)
[2023-11-23] MEDS ORDERED: normal saline 1000ML IV soln IVB ONE (14:40)
[2023-11-23] MEDS ORDERED: insulin regular, human 10 units/0.1 ml syringe SQ ONE (14:40)
[2023-11-23 14:55] LABS: BILIRUBIN,URINE NEGATIVE (Neg); CLARITY,URINE CLEAR (Clear); COLOR,URINE YELLOW (Yellow); GLUCOSE, URINE >=1000 mg/dl (Neg); KETONES,URINE NEGATIVE (Neg); LEUKOCYTE ESTERASE ,URINE NEGATIVE (Neg); NITRITES, URINE NEGATIVE (Neg); OCCULT BLOOD,URINE TRACE-INTACT (Neg); PH,URINE 5.5 (4.8-8.0); PROTEIN,URINE 30 mg/dl (Neg); UROBILINOGEN,URINE 0.2 E.U/dL (0.2-1.0)
[2023-11-23 14:57] LABS: UA COLLECTION TYPE CLN CATCH MIDSTREAM
[2023-11-23 15:05] LABS: SQUAMOUS EPITHELIAL CELL,UR FEW /LPF (FEW); TRANSITIONAL EPI CELLS,URINE FEW /HPF
[2023-11-23 15:06] LABS: BACTERIA,URINE FEW /HPF (Neg); WBC,URINE 0-4 /HPF (0-4)
[2023-11-23] MEDS ORDERED: EMPA1TAB34 PO (15:21)
[2023-11-23] MEDS ORDERED: LISI20TA28 PO (15:21)
[2023-11-23] MEDS ORDERED: INSU100I31 SUBCUT (15:21)
[2023-11-23] MEDS ORDERED: WARF-55 PO (15:21)
[2023-11-23 15:34] VITALS: BP 180/85; PULSE 79; RESP 16; TEMP 98; O2SAT 97
== END 2023-11-23 15:35 | disposition home or self-care (01) ==
LOC: ER 11:28
DX: E11.65 Type 2 diabetes mellitus with hyperglycemia (principal); Z76.0 Encounter for issue of repeat prescription; F12.90 Cannabis use, unspecified, uncomplicated; F15.90 Other stimulant use, unspecified, uncomplicated; Z79.82 Long term (current) use of aspirin; Z79.899 Other long term (current) drug therapy; Z79.01 Long term (current) use of anticoagulants
CPT/HCPCS: 36415; 80053; 81001; 82948; 85025; 96360; 99283; J1815; J7030

== ENCOUNTER 2024-02-09 15:49 | Emergency (ER) | payer MEDICARE, MEDICAID ==
[~2024-02-09] VITALS: Ht 175.3 cm; Wt 86.4 kg
[~2024-02-09 15:49] MED LIST changes: +INSU100I31 SUBCUT
[2024-02-09] MEDS ORDERED: iohexol 350MG/ML 100ml bottle IV ONE (16:49)
[2024-02-09 17:39] VITALS: TEMP 98.7
[2024-02-09] MEDS: normal saline 1000ml 1,000 ML IV ONE (18:07)
[2024-02-09] MEDS: ondansetron/PF 4mg/2ml inj IV ONE (18:07)
[2024-02-09] MEDS: morphine 4 MG/ML inj SYRINge IV ONE (18:07)
[2024-02-09 18:09] LABS: BASOPHILS % (AUTO) 0.4 % (0-1); EOSINOPHILS % (AUTO) 0.1 % (0-6); HEMATOCRIT 41.3 % (42.0-52.0); HEMOGLOBIN 14.2 g/dl (14.0-17.9); LYMPHOCYTES # (AUTO) 2.1 X10'3 (1.1-4.8); LYMPHOCYTES % (AUTO) 17.9 % (21-51); MEAN CORPUSCULAR HEMOGLOBIN 30.3 PG (27.0-31.0); MEAN CORPUSCULAR HGB CONC 34.4 g/dL (33.0-36.5); MEAN CORPUSCULAR VOLUME 88.2 FL (78-98); MONOCYTES # (AUTO) 0.9 X10'3 (0-0.9); MONOCYTES % (AUTO) 7.8 % (2-12); NEUTROPHILS # (AUTO) 8.7 X10'3 (1.8-7.7); NEUTROPHILS % (AUTO) 73.8 % (42-75); PLATELET COUNT 233 X10'3 (140-440); RED BLOOD COUNT 4.69 X10'6 (4.70-6.10); RED CELL DISTRIBUTION WIDTH 12.8 % (11.5-14.5); WHITE BLOOD COUNT 11.8 X10'3 (4.5-11.0)
[2024-02-09 18:20] LABS: ALBUMIN 3.6 G/DL (3.4-5.0); ANION GAP 10 (8-16); BLOOD UREA NITROGEN 20 MG/DL (7-18); BUN/CREATININE RATIO 13.8 (10.0-20.0); CALCIUM 8.3 MG/DL (8.5-10.1); CHLORIDE 97 MMOL/L (99-107); CREATININE 1.45 MG/DL (0.60-1.10); GLUCOSE 341 MG/DL (70-104); POTASSIUM 4.5 MMOL/L (3.5-5.1); SODIUM 132 MMOL/L (135-145); TOTAL CARBON DIOXIDE 25.3 MMOL/L (24-32); eCRCL 53 ML/MIN; eGFR 49 ML/MIN
[2024-02-09 18:29] LABS: APTT 29 SECONDS (22-32); PROTHROMBIN TIME 10.3 SECONDS (9.0-12.0)
[2024-02-09] MEDS: aspirin 325mg tablet, delayed-release (Ecotrin) PO ONE (19:18)
[2024-02-09] MEDS: labetalol 20mg/4ml (5mg/ml) syringe IV ONE (19:19)
[2024-02-09 21:33] VITALS: BP 106/69; PULSE 92; RESP 18; O2SAT 99
== END 2024-02-09 21:20 ==
LOC: ER 15:51
DX: I63.9 Cerebral infarction, unspecified (principal); G93.89 Other specified disorders of brain; G46.4 Cerebellar stroke syndrome; R42 Dizziness and giddiness; E11.9 Type 2 diabetes mellitus without complications; E42 Marasmic kwashiorkor; F12.10 Cannabis abuse, uncomplicated; F15.10 Other stimulant abuse, uncomplicated; Z79.899 Other long term (current) drug therapy
CPT/HCPCS: 36415; 70450; 70496; 70498; 71045; 80048; 82948; 84484; 85025; 85610; 85730; 93005; 96361; 96374; 96375; 99291; J2270; J2405; J3490; J7030; Q9967

== ENCOUNTER 2025-08-31 12:11 | Outpatient (CLI) | payer MEDICARE, MEDICAID ==
[~2025-08-31 12:11] MED LIST changes: +GABA-1405 PO; -GABA600T13 PO
[2025-08-31 12:51] LABS: MEAN PLATELET VOLUME 8.0 FL (7.4-10.4); RED CELL DISTRIBUTION WIDTH 13.6 % (11.5-14.5)
[2025-08-31 13:07] LABS: LEUKOCYTE ESTERASE ,URINE NEGATIVE (Neg); NITRITES, URINE NEGATIVE (Neg); OCCULT BLOOD,URINE NEGATIVE (Neg)
[2025-08-31 13:10] LABS: CHOL/HDL RATIO 4.0 (0.00-4.99); CREATININE 2.04 MG/DL (0.60-1.10); LDL CHOLESTEROL 39 MG/DL (50-100); TOTAL CARBON DIOXIDE 26.8 MMOL/L (24-32); eGFR 33 ML/MIN
[2025-08-31 13:12] LABS: UA COLLECTION TYPE CLN CATCH MIDSTREAM
[2025-08-31 13:13] LABS: SQUAMOUS EPITHELIAL CELL,UR FEW /LPF (FEW)
== END 2025-08-31 23:59 | disposition home or self-care (01) ==
LOC: RAD 12:11
PROVIDERS: ATTEND Nurse Practitioner Family
DX: E11.65 Type 2 diabetes mellitus with hyperglycemia (principal); I25.10 Atherosclerotic heart disease of native coronary artery without angina pectoris; I10 Essential (primary) hypertension; Z89.511 Acquired absence of right leg below knee; I73.9 Peripheral vascular disease, unspecified; M15.9 Polyosteoarthritis, unspecified; K21.9 Gastro-esophageal reflux disease without esophagitis; R53.83 Other fatigue
CPT/HCPCS: 36415; 80053; 80061; 81001; 84153; 84402; 84403; 84439; 84443; 85025; 87077; 87088; 87186

== ENCOUNTER 2025-09-27 13:03 | Outpatient (CLI) | payer MEDICARE, MEDICAID ==
[2025-09-27 14:12] LABS: CREATININE 2.19 MG/DL (0.60-1.10); TOTAL CARBON DIOXIDE 25.0 MMOL/L (24-32); eGFR 31 ML/MIN
== END 2025-09-27 23:59 | disposition home or self-care (01) ==
LOC: RAD 13:03
PROVIDERS: ATTEND Nurse Practitioner Family
DX: I12.9 Hypertensive chronic kidney disease with stage 1 through stage 4 chronic kidney disease, or unspecified chronic kidney disease (principal); N18.32 Chronic kidney disease, stage 3b
CPT/HCPCS: 36415; 80053; 82043; 82570; 84155; 84165